=== PATIENT | female | born 1985 | race Two or more races ===

== ENCOUNTER 2017-01-20 16:04 | Emergency (ER) | payer OTHER ==
[~2017-01-20] VITALS: Ht 157.5 cm; Wt 81.8 kg
[2017-01-20 16:05] VITALS: BP 138/86
[2017-01-20] MEDS ORDERED: ACET325T10 PO (16:20)
[2017-01-20] MEDS ORDERED: METH1TAB40 PO (16:20)
[2017-01-20] MEDS ORDERED: INDO50CA PO (16:20)
[2017-01-20] MEDS ORDERED: IBUP-1022 PO (16:20)
[2017-01-20] MEDS ORDERED: PRED20TA PO (17:13)
[2017-01-20] MEDS ORDERED: VALI5TAB PO (17:14)
[2017-01-20] MEDS ORDERED: diazePAM 5 MG TAB PO ONE (17:15)
[2017-01-20] MEDS ORDERED: predniSONE 20 MG TAB PO ONE (17:15)
== END 2017-01-20 17:44 | disposition home or self-care (01) ==
LOC: M ED 16:04
DX: M54.42 Lumbago with sciatica, left side (principal)

== ENCOUNTER → 2017-03-30 | Outpatient (CLI) | payer OTHER ==
[~2017-03-30] MED LIST: ACET325T10 PO; IBUP-1022 PO; INDO50CA PO; METH1TAB40 PO; PRED20TA PO; VALI5TAB PO
--- NOTE | 2017-04-18 01:33 | ECWPNPC ---
PATIENT NAME: JANKI DELEON : 1985 GENDER: FEMALE VISIT DATE: 03/30/2017 DISCHARGE DATE: 03/30/17 1431 VISIT LOCKED DATE TIME: PHYSICIAN: CHRISTIAN WARD RESOURCE: CHRISTIAN WARD REASON FOR APPOINTMENT 1. BACK PAIN HISTORY OF PRESENT ILLNESS NEW PATIENT CONSULT: 32 Y/O FEMALE REFERRED FROM [facility] FOR PERSISTENT LOW BACK PAIN WITH LEFT LEG RADICULAR SYMPTOMS. SHE HAD COSMETIC SURGERY OVER BUTTOCKS AND THIGH IN AUGUST 2016.SHE TWISTED GOING DOWN STAIRS IN OCTOBER 2016 AND BEGAN TO EXPERIENCE SEVERE COCCYX AND LEFT BUTTOCK PAIN.SHORTLY AFTER SHE BEGAN TO HAVE INTERMITTENT LEFT POSTERIOR LEG SHOOTING PAIN INCLUDING FOOT.RATING PAIN VAS 7/10.SHE IS CURRENTLY ATTENDING PT BUT IS HAVING EXCRUCIATING PAIN.VERY UNCOMFORTABLE DURING VISIT.DENIES BOWEL OR BLADDER INCONTINENCE.NO RECENT FEVER,ILLNESS OR WEIGHT LOSS. WHEN DID YOUR PAIN FIRST START? . BRIEFLY DESCRIBE HOW YOUR PAIN STARTED? . HOW DOES YOUR PAIN CHANGE WITH TIME? . DOES YOUR PAIN AWAKEN YOU FROM SLEEP? . HOW MANY HOURS OF SLEEP DO YOU NORMALLY GET? . ANY DIAGNOSTIC TESTING? . FACILITY WHERE TESTS WERE DONE? ____. PAIN TREATMENT TREATMENT YES CANCER HAVE YOU EVER HAD ANY TYPE OF CANCER?NO NO. PAIN SCREENING: PATIENT HAS A COMPLAINT OF ACUTE OR CHRONIC PAIN :YES FALL RISK SCREENING: SCREENING :NO FALLS IN THE PAST YEAR LENZ INVENTORY: QUESTIONNAIRE ASSESSEDYES SCORE VALUE CALCULATED YES SCORE:12 CURRENT MEDICATIONS TAKING TYLENOL 325 MG TABLET 2 TABLETS NEEDED ORALLY EVERY 6 HRS TAKING IBUPROFEN 800 MG TABLET 1 TABLET WITH FOOD OR MILK ORALLY THREE TIMES A DAY TAKING VALIUM 5 MG TABLET 1 TABLET NEEDED ORALLY ONCE EVERY 2 WEEKS NEEDED TAKING GREEN TEA - TABLET 1 TAB ORALLY TWICE A DAY TAKING CINNAMON 500 MG TABLET 1 TAB ORALLY TWICE A DAY TAKING MULTIVITAMIN GUMMIES CHILDRENS - TABLET CHEWABLE 1 TAB ORALLY TWICE A DAY NOT-TAKING INDOMETHACIN 25 MG CAPSULE 1 CAPSULE WITH FOOD OR MILK ORALLY TWICE A DAY NOT-TAKING METHOCARBAMOL 500 MG TABLET 1.5 TABLETS ORALLY EVERY 4 HRS NOT-TAKING FLEXERIL 10 MG TABLET 1 TABLET NEEDED ORALLY THREE TIMES A DAY NOT-TAKING IBUPROFEN 600 MG TABLET 1 TABLET WITH FOOD OR MILK ORALLY THREE TIMES A DAY MEDICATION LIST REVIEWED AND RECONCILED WITH THE PATIENT PAST MEDICAL HISTORY NECK AND BACK PAIN ALLERGIES N.K.D.A. SURGICAL HISTORY CHRISTIANNE BARBOUR 2012 LIPOSUCTION IN LOW BACK AREA AND INNER THIGHS 08/2016 FAMILY HISTORY FATHER: , DIAGNOSED WITH HEART DISEASE MOTHER: ALIVE 2 SISTER(S) - HEALTHY. 1 SON(S) - HEALTHY. SOCIAL HISTORY GENERAL: TOBACCO USE ARE YOU A:FORMER SMOKER HOW LONG HAS IT BEEN SINCE YOU LAST SMOKED?1-5 YEARS ALCOHOL SCREENING POINTS1 INTERPRETATIONNEGATIVE RECREATIONAL DRUG USE DRUG USE?NO AMISH [id number] NONE LANGUAGE LANGUAGES SPOKEN:DIVEHI LEARNING BARRIERS / SPECIAL NEEDS BARRIERS TO LEARNING?NO HEARING IMPAIRED?NO VISION IMPAIRED?NO COGNITIVELY IMPAIRED?NO READINESS TO LEARN?YES LEARNING PREFERENCES?NO LEARNING CAPABILITIES PRESENT?YES EMOTIONAL BARRIERS?NO SPECIAL DEVICES?NO SENIOR RECEPTIONIST NEEDED?NO PAIN CLINIC PFS, CLERGY, PUBLIC HEALTH REFERRALS PFS REFERRAL NEEDED?NO CLERGY REFERRAL NEEDED?NO PUBLIC HEALTH REFERRAL NEEDED?NO WAS THE PROVIDER NOTIFIED OF ANY PERTINENT INFO?NO HAS THE PATIENT BEEN EDUCATED REGARDING HIS/HER PLAN OF CARE?YES HAS THE PATIENT BEEN EDUCATED REGARDING PAIN, THE RISK FOR PAIN, THE IMPORTANCE OF EFFECTIVE PAIN MANAGEMENT, AND THE PAIN ASSESSMENT PROCESS?YES PATIENT: ____. ADVANCE DIRECTIVES HEALTH CARE PROXY?NO WOULD YOU LIKE MORE INFORMATION?NO DO YOU HAVE A DNR?NO WOULD YOU LIKE MORE INFORMATION?NO LIVING WILL?NO WOULD YOU LIKE MORE INFORMATION?NO POWER OF DIFFERENTIAL SPECIALIST?NO WOULD YOU LIKE MORE INFORMATION?NO REVIEW OF SYSTEMS REVIEWED BY: PROVIDER: CHRISTIAN BOX . CONSTITUTIONAL: ANY CHANGE IN YOUR MEDICAL CONDITION? NO . CHILLS NO . FEVER NO . INFECTION: DO YOU HAVE NEW INFECTIONS? NO . DO YOU HAVE HISTORY OF MRSA? NO . MUSCULOSKELETAL: ANY NEW PATTERNS OF PAIN OR NUMBNESS? NO . SYTEMIC LUPUS NO . GASTROENTEROLOGY: ANY NEW CHANGE IN BOWEL CONTROL? NO . BARRETTS ESOPHAGUS NO . CIRRHOSIS NO . HEPATITIS NO . LIVER FAILURE NO . ACID REFLUX NO . UNEXPLAINED WEIGHT LOSS NO . GENITOURINARY: ANY NEW CHANGE IN BLADDER CONTROL? NO . IS THERE A CHANCE YOU COULD BE ? NO . HEMATOLOGY/LYMPH: DO YOU TAKE ANY BLOOD THINNERS? (FOR EXAMPLE- COUMADIN, PLAVIX, AGGRENOX, PLATEL, PRADAXA, OR XARELTO) NO . WHEN WAS YOUR LAST DOSE? DATE: TIME: . LOW PLATELET COUNT NO . SICKLE CELL DISEASE NO . VON WILLIEBRANDS NO . FACTOR V LEIDEN NO . THALLASEMIA NO . ANEMIA NO . EASY BRUISING NO . NEUROLOGY: HAVE YOU FALLEN IN THE PAST 6 MONTHS? NO . ANY NEW EXTREMITY NUMBNESS OR WEAKNESS? NO . HEAD INJURY NO . DEMENTIA NO . CEREBRAL PALSY NO . MULTIPLE SCLEROSIS NO . DIZZINESS NO . HEADACHE NO . STROKES NO . VERTIGO NO . CARDIOLOGY: DO YOU HAVE A PACEMAKER OR DEFIBRILLATOR? NO . ANGINA NO . HEART ATTACK NO . HEART SURGERY NO . CONGESTIVE HEART FAILURE/FLUID OVERLOAD NO . CHEST PAIN NO . HIGH BLOOD PRESSURE NO . IRREGULAR HEART BEAT NO . RESPIRATORY: HAVE YOU BEEN SICK IN THE PAST WEEK? NO . FEVER NO . FLU LIKE SYMPTOMS? NO . CPAP NO . BYPAP NO . ASTHMA NO . EMPHYSEMA NO . CHRONIC LUNG DISEASES NO . SHORTNESS OF BREATH ON EXERTION NO . DO YOU USE ANY TYPE OF TOBACCO (SMOKE, SMOKELESS, CHEW)? NO . COUGH NO . SNORING NO . INTEGUMENTARY: DO YOU HAVE ANY RASHES OR OPEN SORES? NO . ALLERGIC/IMMUNO: ARE YOU ALLERGIC TO SHELLFISH OR IV DYE? NO . ANY NEW ALLERGIES? NO . PSYCHIATRIC: DO YOU HAVE THOUGHTS OF HURTING YOURSELF OR SOMEONE ELSE? NO . ARE YOU ABUSED, NEGLECTED, OR IN AN UNSAFE ENVIRONMENT? NO . ENDOCRINOLOGY: ARE YOU DIABETIC? NO . THYROID DISORDER NO . OTHER: DO YOU NEED ANY PRESCRIPTIONS? NO . IF YES, PLEASE LIST: ____ . ANY NEW PROBLEMS WITH YOUR MEDICATIONS? NO . WHEN DID YOU LAST EAT? ____ . WHEN DID YOU LAST DRINK? ____ . WHAT DID YOU LAST DRINK? ____ . NAME OF PERSON DRIVING YOU HOME? ____ . DO YOU HAVE ANY OTHER QUESTIONS OR CONCERNS YES, I WOULD LIKE TO CONTINUE PT WITHOUT PAIN . VITAL SIGNS WT 175.2 LBS, HT 62 IN, BMI 32.04 INDEX, BP 135/78 MM HG, HR 110 /MIN, RR 18 /MIN, TEMP 98.8 F, OXYGEN SAT % 99, SAFE IN ENV? (Y/N) YES, NA INITIALS AW 1324, REVIEWED BY: CS. EXAMINATION GENERAL EXAMINATION: GENERAL APPEARANCE:UNCOMFORTABLE,DEPRESSED,WEEPY.,ANXIOUS. PSYCHCONSTRICTED. NECK:TRACHEA MIDLINE. NO CERVICAL OR SUPRACLAVICULAR LYMPHADENOPATHY NOTED. LUNGS:LUNG GLYNN ARE CLEAR TO AUSCULTATION BILATERALLY. GOOD MOVEMENT OF AIR. HEART:S1, S2 IN A REGULAR RATE AND RHYTHM. NO SIGNIFICANT MURMURS, RUBS OR GALLOPS NOTED. LUMBAR SACRAL SPINEMUSCLE STRENGTH TESTING 5/5 BLE.SPECIFIC POINT TENDERNESS OVER LEFT SIJ. NEUROLOGIC EXAM:DTRS 1-2+ IN ALL 4 EXTREMITIES.NORMAL SENSATION LIGHT TOUCH LOWER EXTREMITIES. ASSESSMENTS PAIN OF LEFT SACROILIAC JOINT - M53.3 (PRIMARY) PROTRUDED LUMBAR DISC - M51.26 TREATMENT PAIN OF LEFT SACROILIAC JOINT START TRAMADOL HCL TABLET, 50 MG, 1 TABLET NEEDED, ORALLY, Q8H MDD3, 30 DAY(S), 30, REFILLS 0 NOTES: LEFT SIJ. PREVENTIVE MEDICINE PAIN CLINIC TEACHING: MEDICATIONS PATIENT HAD ALREADY TAKEN TRAMADOL PRIOR SO DECLINED ANY FURTHER TEACHING. PROCEDURE TEACHING SACROILIAC JOINT INJECTION TEACHING DONE. ADDITIONAL HANDOUTS GIVEN. PATIENT'S QUESTIONS ANSWERED AND PATIENT VERBALIZES UNDERSTANDING.. PROCEDURE CODES FA211 ESTABILISHED PATIENT [facility] CHARGE DISPOSITION & COMMUNICATION FOLLOW UP 2WK POST (REASON: REQUEST SHAHEEN BUNN) ELECTRONICALLY SIGNED BY ISAURO JUNE ON 04/17/2017 AT 08:30 PM EDT DISCLAIMER : THIS IS A VISIT SUMMARY EXTRACTED FROM THE [employer] CHART. IT IS NOT A COPY OF THE [employer] PROGRESS NOTE. PARAS
== END ==
LOC: M PAIN 13:15
PROVIDERS: ATTEND Nurse Practitioner Family
DX: M53.3 Sacrococcygeal disorders, not elsewhere classified (principal); M51.26 Other intervertebral disc displacement, lumbar region; G89.29 Other chronic pain; Z87.891 Personal history of nicotine dependence; Z79.899 Other long term (current) drug therapy

== ENCOUNTER → 2017-07-18 | Outpatient (CLI) | payer OTHER ==
[2017-07-18 17:41] LABS: HEMOGLOBIN 14.8 g/dl (12.0-16.0); MEAN CORPUSCULAR HEMOGLOBIN 30.3 pg (27.0-33.0); MEAN CORPUSCULAR HGB CONC 34.4 g/dl (32.0-36.5); MEAN CORPUSCULAR VOLUME 87.9 fl (80.0-96.0); PLATELET COUNT, AUTOMATED 258 10^3/uL (150-450); RED BLOOD COUNT 4.89 10^6/uL (4.00-5.40); RED CELL DISTRIBUTION WIDTH 12.6 % (11.5-14.5); WHITE BLOOD COUNT 8.4 10^3/uL (4.0-10.0)
[2017-07-18 18:20] LABS: ALBUMIN 4.3 GM/DL (3.2-5.2); ALKALINE PHOSPHATASE 59 U/L (45-117); ALT/SGPT 15 U/L (12-78); ANION GAP 10 MEQ/L (8-16); AST/SGOT 12 U/L (7-37); BILIRUBIN,TOTAL 0.6 MG/DL (0.2-1.0); BLOOD UREA NITROGEN 11 MG/DL (7-18); CALCIUM LEVEL 9.5 MG/DL (8.5-10.1); CARBON DIOXIDE LEVEL 29 MEQ/L (21-32); CHLORIDE LEVEL 101 MEQ/L (98-107); CREATININE FOR GFR 0.81 MG/DL (0.55-1.02); FREE T4 0.94 NG/DL (0.76-1.46); GLOMERULAR FILTRATION RATE > 60.0 (>60); GLUCOSE, FASTING 59 MG/DL (70-100); POTASSIUM SERUM 4.1 MEQ/L (3.5-5.1); SODIUM LEVEL 140 MEQ/L (136-145); TOTAL PROTEIN 7.6 GM/DL (6.4-8.2)
[2017-07-18 19:06] LABS: FOLATE > 24.0 NG/ML; TOTAL 25(OH) VITAMIN D 17.2 NG/ML (30.0-100.0); VITAMIN B12 LEVEL 466 PG/ML
[2017-07-18 20:14] LABS: ESTIMATED AVERAGE GLUCOSE 97 MG/DL (60-110)
== END ==
LOC: M LRY 13:38
DX: E66.09 Other obesity due to excess calories (principal); E55.9 Vitamin D deficiency, unspecified; Z13.0 Encounter for screening for diseases of the blood and blood-forming organs and certain disorders involving the immune mechanism; Z68.32 Body mass index [BMI] 32.0-32.9, adult; R53.83 Other fatigue
CPT/HCPCS: 82746

== ENCOUNTER 2018-08-08 13:29 | Inpatient (IN) | payer OTHER ==
[~2018-08-08] VITALS: Ht 162.6 cm; Wt 66.6 kg
[2018-08-08 15:02] LABS: HEMATOCRIT 47.1 % (36.0-47.0); HEMOGLOBIN 16.2 g/dl (12.0-15.5); MEAN CORPUSCULAR HEMOGLOBIN 30.4 pg (27.0-33.0); MEAN CORPUSCULAR HGB CONC 34.4 g/dl (32.0-36.5); MEAN CORPUSCULAR VOLUME 88.4 fl (80.0-96.0); PLATELET COUNT, AUTOMATED 292 10^3/uL (150-450); RED BLOOD COUNT 5.33 10^6/uL (4.00-5.40); WHITE BLOOD COUNT 10.8 10^3/uL (4.0-10.0)
[2018-08-08 15:29] LABS: AMPHETAMINES LEVEL URINE NEGATIVE (NEGATIVE); BARBITURATES URINE NEGATIVE (NEGATIVE); BENZODIAZEPINES URINE NEGATIVE (NEGATIVE); CANNABINOIDS URINE NEGATIVE (NEGATIVE); COCAINE METABOLITE URINE NEGATIVE (NEGATIVE); METHADONE URINE NEGATIVE (NEGATIVE); OPIATES URINE NEGATIVE (NEGATIVE); PHENCYCLIDINE URINE NEGATIVE (NEGATIVE)
[2018-08-08 15:30] LABS: HCG, SERUM QUALITATIVE NEGATIVE (NEGATIVE)
[2018-08-08 15:48] LABS: ACETAMINOPHEN LEVEL < 2.0 UG/ML (10.0-30.0); ALT/SGPT 19 U/L (12-78); BILIRUBIN,DIRECT 0.2 MG/DL (0.0-0.2); BILIRUBIN,TOTAL 0.5 MG/DL (0.2-1.0); BLOOD UREA NITROGEN 8 MG/DL (7-18); CALCIUM LEVEL 8.8 MG/DL (8.5-10.1); CARBON DIOXIDE LEVEL 24 MEQ/L (21-32); CHLORIDE LEVEL 105 MEQ/L (98-107); CREATININE FOR GFR 0.89 MG/DL (0.55-1.30); ETHYL ALCOHOL (ETHANOL) 0.175 % (0.000-0.010); GLOMERULAR FILTRATION RATE > 60.0 (>60); GLUCOSE, FASTING 99 MG/DL (70-100); POTASSIUM SERUM 4.1 MEQ/L (3.5-5.1); SALICYLATE LEVEL < 1.7 MG/DL (5.0-30.0); SODIUM LEVEL 142 MEQ/L (136-145)
[2018-08-08] MEDS ORDERED: MOM 30ML SUSPENSION UDC PO PRN (19:15)
[2018-08-08] MEDS ORDERED: traZODone 50 MG TAB PO PRN (19:15)
[2018-08-08] MEDS ORDERED: MAALOX 30 ML SUSP *UDC PO PRN (19:15)
[2018-08-08 21:43] VITALS: BP 138/90
[2018-08-09 06:42] VITALS: BP 124/78
--- NOTE | 2018-08-09 09:35 | HPEPDOC ---
[facility] Medical History & Physical Date of Admission Aug 08, 2018 History and Physical PCP: Jairo leone ATTENDING: Dr. Kelley Guzman HPI: 33 yo F admitted to [facility] for unspecified depressive disorder, being medically examined today. The patient declines to participate with history or physical exam at this time. The patient had apparently been found at her home running her vehicle in a closed garage. History is taken from the chart. PMHx: Anxiety Depression Bipolar disorder History of SI PSHX: Labiaplasty SOCHX: Resides in: [facility] Marital Status: FAMHX: Patient declines to provide history at this time. ROS: Patient declines to provide any additional history at this time. PE: Patient declines to participate with physical exam at this time. Vital Signs Label Value Date Time Patient Temperature 99.1 degrees F 08/09/18 0642 Temperature Source Temporal 08/09/18641 Pulse 105 08/09/18 06 Respiratory Rate 14 bpm 08/09/18641 Blood Pressure Assessment 124/78 (93) 08/09/1842 Bedside Pulse Oximetry 100 % 08/08/182121 Item Value Date Time Oxygen Delivery Method Room Air 08/08/182121 EKG: Pending A&P: 33 yo F admitted to [facility] for unspecified depressive disorder 1. Psych. Plan per Psychiatry. Obtain baseline EKG to assure the safety of psychiatric medications as they can prolong the QT interval. 2. Substance use. Management as per psychiatry. 3. Follow up with PCP on discharge. 4. Mild leukocytosis. The patient is reporting to staff members that she feels fine. No symptoms reported. Temperature this morning is 99.1. Possible stress response. Recheck CBC in a.m. Request UA with reflex culture. 5. Staff member Clemente assisted in attempting exam. Vital Signs Vital Signs Date Time Temp Pulse Resp B/P (MAP) Pulse Ox O2 Delivery O2 Flow Rate FiO2 08/09/18 06:42 99.1 105 14 124/78 (93) 08/08/18 21:22 100 Room Air Laboratory Data Labs 24H Laboratory Tests 2 08/08/18 14:45: Nucleated Red Blood Cells % (auto) 0.0, Anion Gap 13, Glomerular Filtration Rate > 60.0, Calcium Level 8.8, Aspartate Amino Transf (AST/SGOT) 18, Alanine Aminotransferase (ALT/SGPT) 19, Alkaline Phosphatase 60, Total Bilirubin 0.5, Direct Bilirubin 0.2, Total Protein 8.0, Albumin 5.0, Albumin/Globulin Ratio 1.67, Thyroid Stimulating Hormone (TSH) 1.160, Human Chorionic Gonadotropin, Qual NEGATIVE, Salicylates Level < 1.7L, Urine Amphetamines Screen NEGATIVE, Urine Benzodiazepines Screen NEGATIVE, Urine Opiates Screen NEGATIVE, Urine Methadone Screen NEGATIVE, Acetaminophen Level < 2.0L, Urine Barbiturates Screen NEGATIVE, Urine Phencyclidine Screen NEGATIVE, Urine Cocaine Metabolite Screen NEGATIVE, Urine Cannabinoids Screen NEGATIVE, Ethyl Alcohol Level 0.175H CBC/BMP Laboratory Tests 08/08/18 14:45 Red Blood Count 5.33, Mean Corpuscular Volume 88.4, Mean Corpuscular Hemoglobin 30.4, Mean Corpuscular Hemoglobin Concent 34.4, Red Cell Distribution Width 12.9 Home Medications No Active Prescriptions or Reported Meds Allergies Coded Allergies: No Known Allergies (Unverified , 01/20/17) Prachi Young Aug 09, 2018 09:35
--- NOTE | 2018-08-09 10:46 | MHHPEPDOC ---
General Date Of Admission: Aug 08, 2018 Legal Status: 9.39 Chief Complaint "The car was running b/c I was going somewhere and couldn't find my purse." History of Present Illness HISTORY OF THE PRESENT ILLNESS: Patient is a 33 -year-old , dependant, female, who was admitted after pt was brought in by police at [facility] pt's called them stating the pt called him and told him she was going to kill herself. When MP's arrived to pt's home they found her in the garage with the car running, CO everywhere, broken glass on the floor everywhere, ceiling fan and detectors pulled out of ju[place]rez and destroyed on the floor. In the ED pt denied SI stating the car was running b/c she was going somewhere and couldn't find her purse. She denied calling her . 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 She was evasive and laughing during evaluation in the ED. Pt seen in room and refusing to talk to anyone. Per staff pt standing in her closet and won't come out. When I saw her she was being seen by nurse and no longer in her closet but did attempt to return to her closest after it was clear she was not going to talk to anyone. She appears more behavioral and annoyed she's here rather than psychotic. Pt advised she will be locked out of her room if she doesn't refrain from standing in the closet. Pt sat on her bed. Pt is very uncooperative. History gathered from ED records as pt refusing to talk to anyone. Past Psychiatric History Previous Psychiatric Diagnosis: depression Previous Psychiatric Admissions: previous admission in [place] per pt's Suicide Attempts: unknown Psychiatric Follow-up: none known Psychiatric medications: none Past Medical History Medical Problems denies Head Injury: No Seizures: No Hospitalizations: No Surgeries: Yes (labiaplasty, cosmetic buttock surgery) Family Medical/Psychiatric HX Medical Problems noncontributory Psychiatric Disorders: No Addiction: No Suicide Attemps/Completions: No Addiction History denies Social History Unable to assess Childhood: unknown Abuse/Trauma:unknown Current Living Situation: lives with on FD Education: unknown Employment:unknown Social Support: Legal: unknown Marital: , dependant Mental Status Examination General Appearance: well groomed, appears stated age, hospital scubs/clothing Build: average Demeanor: withdrawn, guarded Eye Contact: poor Activity: average Behavior: uncooperative, withdrawn, other (refusing to talk to anyone) Speech: impoverished Mood: irritable Mood mute Affect: constricted, inappropriate Thought Process: other (unable to assess) Thought Content (Delusions): other (unable to assess) Thought Content (Other): other (unable to assess) Thought Content (Aggressive): other (unable to assess) Perception (Hallucinations): other (unable to assess) Perception (Other): other (unable to assess) Cognition (Impairment of): unable to assess Cognition(Intelligence Est.): other (unable to assess) Oriented: Awake, Alert Insight: poor Judgment: Poor Psychosis: Other (unable to assess) Diagnoses Mood d/o unspecified Assessment Pt seen in room and refusing to talk to anyone. Per staff pt standing in her closet and won't come out. When I saw her she was being seen by nurse and no longer in her closet but did attempt to return to her closest after it was clear she was not going to talk to anyone. She appears more behavioral and annoyed she's here rather than psychotic. Pt advised she will be locked out of her room if she doesn't refrain from standing in the closet. Pt sat on her bed. Pt is very uncooperative. Will start prozac 10mg daily for mood and anxiety as history indicates b/c most likely suffering from depression. Initial Treatment Plan 1. Patient was admitted on a 9.39 status. 2. Complete history was obtained. 3. With patients permission, family will be contacted and database will be expanded. 4. Patients medication regimen will be reviewed and changed accordingly. 5. Patient will be provided with protected environment. 6. Patient will be treated with individual, group, and milieu therapies. 7. Patient will receive supportive psych-education. 8. Discharge planning will commence immediately. 9. Outpatient follow-up treatment will be strongly recommended. 10. The initial treatment plan will focus initially on: * Depression. * Risk for suicide. * Substance abuse. 11. prozac 10mg daily ESTIMATED LENGTH OF STAY: 5-7 DAYS. TIME SPENT COUNSELING AND COORDINATING INITIAL CARE: 60 minutes. Vital Signs Vital Signs Date Time Temp Pulse Resp B/P (MAP) Pulse Ox O2 Delivery O2 Flow Rate FiO2 2/14/19 06:42 99.1 105 14 124/78 (93) 08/08/18 21:22 100 Room Air Laboratory Data 24H Labs Laboratory Tests 2 08/08/18 14:45: Nucleated Red Blood Cells % (auto) 0.0, Anion Gap 13, Glomerular Filtration Rate > 60.0, Calcium Level 8.8, Aspartate Amino Transf (AST/SGOT) 18, Alanine Aminotransferase (ALT/SGPT) 19, Alkaline Phosphatase 60, Total Bilirubin 0.5, Direct Bilirubin 0.2, Total Protein 8.0, Albumin 5.0, Albumin/Globulin Ratio 1.67, Thyroid Stimulating Hormone (TSH) 1.160, Human Chorionic Gonadotropin, Qual NEGATIVE, Salicylates Level < 1.7L, Urine Amphetamines Screen NEGATIVE, Urine Benzodiazepines Screen NEGATIVE, Urine Opiates Screen NEGATIVE, Urine Methadone Screen NEGATIVE, Acetaminophen Level < 2.0L, Urine Barbiturates Screen NEGATIVE, Urine Phencyclidine Screen NEGATIVE, Urine Cocaine Metabolite Screen NEGATIVE, Urine Cannabinoids Screen NEGATIVE, Ethyl Alcohol Level 0.175H CBC/BMP Laboratory Tests 08/08/18 14:45 Red Blood Count 5.33, Mean Corpuscular Volume 88.4, Mean Corpuscular Hemoglobin 30.4, Mean Corpuscular Hemoglobin Concent 34.4, Red Cell Distribution Width 12.9 Medications No Active Prescriptions or Reported Meds Allergies Coded Allergies: No Known Allergies (Unverified , 01/20/17) KONSTANTIN KHAN DO Aug 09, 2018 10:46
--- NOTE | 2018-08-09 16:29 | ECGEPIP ---
Stationary ECG Study [facility] Test Date: 2018-08-09 Pat Name: JANKI DELEON Department: Room: [place] [address] Gender: F [employer] Trimmer: NAI : 1985 Requested By: Prachi Young Order Number: [id number] Reading MD: Pau Camacho Measurements Intervals [place] Rate: 86 P: 24 AR: 118 QRS: 68 QRSD: 85 T: 41 QT: 364 QTc: 435 Interpretive Statements SINUS RHYTHM WITH MARKED SINUS ARRHYTHMIA VS PAC WITH SHORT AR INTERVAL NO PRIOR Electronically Signed On 08-09-2018 16:28:31 EST by Pau Camacho
[2018-08-09 18:00] VITALS: BP 139/76
--- NOTE | 2018-08-10 10:01 | MHIPNPDOC ---
[facility] Progress Note Progress Note DATE OF SERVICE: 08/10/18 HISTORY: Patient is a 33 -year-old , dependant, female, who was admitted after pt was brought in by police at per pt's c alled them stating the pt called him and told him she was going to kill herself. When MP's arrived to pt's home they found her in the garage with the car running, CO everywhere, broken glass on the floor everywhere, ceiling fan and detectors pulled out of [place] and destroyed on the floor. In the ED pt denied SI stating the car was running b/c she was going somewhere and couldn't find her purse. She denied calling her . She admitted she didn't have a [place] driver's license. She was evasive and laughing during evaluation in the ED. Pt seen in room and refusing to talk to anyone. Per staff pt standing in her closet and won't come out. When I saw her she was being seen by nurse and no longer in her closet but did attempt to return to her closest after it was clear she was not going to talk to anyone. She appears more behavioral and annoyed she's here rather than psychotic. Pt advised she will be locked out of her room if she doesn't refrain from standing in the closet. Pt sat on her bed. Pt is very uncooperative. History gathered from ED records as pt refusing to talk to anyone. VITAL SIGNS: See below. NEW TEST RESULTS: See below. CURRENT MEDICATIONS: See below. MENTAL STATUS EXAMINATION: General Appearance: well groomed, appears stated age, hospital scubs/clothing Build: average Demeanor: withdrawn, guarded Eye Contact: poor Activity: average Behavior: uncooperative, withdrawn, other (refusing to talk to anyone) Speech: impoverished Mood: irritable Mood mute Affect: constricted, inappropriate Thought Process: other (unable to assess) Thought Content (Delusions): other (unable to assess) Thought Content (Other): other (unable to assess) Thought Content (Aggressive): other (unable to assess) Perception (Hallucinations): other (unable to assess) Perception (Other): other (unable to assess) Cognition (Impairment of): unable to assess Cognition(Intelligence Est.): other (unable to assess) Oriented: Awake, Alert Insight: poor Judgment: Poor Psychosis: Other (unable to assess) DIAGNOSES: Mood d/o unspecified ASSESSMENT:Pt seen in room and refusing to talk and put head under covers in bed. Per staff attempted to see pt and pt refusing to acknowledge admission status (9.39) believing she will be d/c after 24hrs. Refusing to participate in treatment. Agitated with nursing staff and d/c liaison planner asking them to "leave and take my tray" and then when told she must do that attempted to throw at staff but it was taken away from her w/o incident. Pt after arguing with staff proceeded to go to bathroom and say "I'm taking a shit... leave." Pt appears to be very behavioral and possibly paranoid but hard to tell due to complete refusal to talk and cooperate with care. Pt advised this morning when seen that she will be locked out of her room during the day so that she can start p articipating in her treatment rather than isolating in bed refusing to cooperate in any way. Pt has returned from [facility] but pt refuses to sign consent for staff to speak with them so he can aid in pt care. Pt per staff seems to think she can organize her own d/c with a "pad of paper." Pt is very uncooperative. Pt is refusing all medications. MANAGEMENT PLAN: pt to be moved to single room and lock out of room for 8am to 9pm to promote treatment participation Medications: prozac 10mg daily TIME SPENT: 30 minutes. Vital Signs Vital Signs Date Time Temp Pulse Resp B/P (MAP) Pulse Ox O2 Delivery O2 Flow Rate FiO2 08/09/18 18:00 98.2 104 16 139/76 (97) 08/08/18 21:22 100 Room Air Current Medications Current Medications Acetaminophen (Tylenol Tab) 650 mg Q6HP PRN PO HEADACHE or DISCOMFORT; Start 08/08/18 at 19:15 Al Hydrox/Mg Hydrox/Simethicone (Mylanta) 30 ml Q4HP PRN PO HEARTBURN/INDIGESTION; Start 08/08/18 at 19:15 Home Med (Med Rec Complete!) ASDIRECTED XX ; Start 08/08/18 at 19:45; Stop 08/08/18 at 19:48; Status DC Magnesium Hydroxide (Milk Of Magnesia) 30 ml DAILYPRN PRN PO CONSTIPATION; Start 08/08/18 at 19:15 Trazodone HCl (Desyrel) 50 mg QHSP PRN PO INSOMNIA; Start 08/08/18 at 19:15 Allergies Coded Allergies: No Known Allergies (Unverified , 01/20/17) KONSTANTIN KHAN DO Aug 10, 2018 10:01 am
[2018-08-10] MEDS ORDERED: FLUoxetine 10 MG CAP PO ONE (10:15)
[2018-08-11 06:36] VITALS: BP 116/68
[2018-08-11] MEDS: FLUoxetine 10 MG CAP PO SCH (09:00)
[2018-08-11] MEDS ORDERED: LORazepam 2 MG TAB PO PRN (20:15)
[2018-08-11] MEDS: THIAMINE 100 MG TAB PO SCH (21:00)
[2018-08-12] MEDS: FLUoxetine 10 MG CAP PO SCH (09:00)
[2018-08-12] MEDS: FOLIC ACID 1 MG TAB PO SCH (09:00)
[2018-08-12] MEDS: MULTIVITAMINS/MINERALS THERAP 1 TAB PO SCH (09:00)
[2018-08-12] MEDS: THIAMINE 100 MG TAB PO SCH ×2 (09:00→21:00)
[2018-08-12 09:46] VITALS: BP 116/68
[2018-08-12 17:27] VITALS: BP 129/85
[2018-08-12 17:31] VITALS: BP 129/85
[2018-08-13 08:44] VITALS: BP 129/85
[2018-08-13] MEDS: FLUoxetine 10 MG CAP PO SCH (09:00)
[2018-08-13] MEDS: THIAMINE 100 MG TAB PO SCH ×2 (09:00→21:00)
[2018-08-13] MEDS: FOLIC ACID 1 MG TAB PO SCH (09:00)
[2018-08-13] MEDS: MULTIVITAMINS/MINERALS THERAP 1 TAB PO SCH (09:00)
--- NOTE | 2018-08-13 09:56 | MHIPNPDOC ---
[facility] Progress Note Progress Note DATE OF SERVICE: 08/13/18 HISTORY: Patient is a 33 -year-old , dependant, female, who was admitted after pt was brought in by police at per pt's c alled them stating the pt called him and told him she was going to kill herself. When MP's arrived to pt's home they found her in the garage with the car running, CO everywhere, broken glass on the floor everywhere, ceiling fan and detectors pulled out of [place] and destroyed on the floor. In the ED pt denied SI stating the car was running b/c she was going somewhere and couldn't find her purse. She denied calling her . 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 She was evasive and laughing during evaluation in the ED. Pt seen in room and refusing to talk to anyone. Per staff pt standing in her closet and won't come out. When I saw her she was being seen by nurse and no longer in her closet but did attempt to return to her closest after it was clear she was not going to talk to anyone. She appears more behavioral and annoyed she's here rather than psychotic. Pt advised she will be locked out of her room if she doesn't refrain from standing in the closet. Pt sat on her bed. Pt is very uncooperative. History gathered from ED records as pt refusing to talk to anyone. VITAL SIGNS: See below. NEW TEST RESULTS: See below. CURRENT MEDICATIONS: See below. MENTAL STATUS EXAMINATION: General Appearance: well groomed, appears stated age, hospital scubs/clothing, head under covers, irritated when I moved cover a little to see face and rudely said "I don't want to talk to you... I don't know who you are." even though I've repeatedly introduced myself to her. Build: average Demeanor: withdrawn, guarded Eye Contact: poor Activity: average Behavior: uncooperative, withdrawn, other (refusing to talk to anyone) Speech: impoverished Mood: irritable Mood "go away." Affect: constricted, inappropriate Thought Process: other (unable to assess) Thought Content (Delusions): other (unable to assess) Thought Content (Other): other (unable to assess) Thought Content (Aggressive): other (unable to assess) Perception (Hallucinations): other (unable to assess) Perception (Other): other (unable to assess) Cognition (Impairment of): unable to assess Cognition(Intelligence Est.): other (unable to assess) Oriented: Awake, Alert Insight: poor Judgment: Poor Psychosis: Other (unable to assess) DIAGNOSES: Psychosis unspecified ASSESSMENT:Pt seen in room and refusing to talk and put head under covers in bed. Per staff attempted to see pt and pt refusing to acknowledge admission status (9.39) believing she will be d/c after 24hrs. Refusing to participate in treatment. Pt appears to be very behavioral and paranoid refusing to talk and cooperate with care. Pt advised this morning when seen that she will be locked out of her room during the day so that she can start participating in her treatment rather than isolating in bed refusing to cooperate in any way. Pt has returned from [facility] and came to visit pt who was refusing to see him. Pt's told staff pt has been bizarre at home punch holes in was, text about [employer] being after her, house a mess, sleeping in closet, history of opiate and alcohol abuse now sober. Staff unable to speak to about pt as she will not sign consent. In lite of info from will start abilify 5mg bid for psychosis. Will encourage pt to take meds that she's currently refusing. Pt uncooperative with staff, refused breakfast, not talking. MANAGEMENT PLAN: pt to be moved to single room and lock out of room for 8am to 9pm to promote treatment participation Medications: abilify 5mg bid TIME SPENT: 30 minutes. Vital Signs Vital Signs Date Time Temp Pulse Resp B/P (MAP) Pulse Ox O2 Delivery O2 Flow Rate FiO2 08/12/18 17:31 98.2 104 18 129/85 (100) 100 08/08/18 21:22 Room Air Current Medications Current Medications Acetaminophen (Tylenol Tab) 650 mg Q6HP PRN PO HEADACHE or DISCOMFORT; Start 08/08/18 at 19:15 Al Hydrox/Mg Hydrox/Simethicone (Mylanta) 30 ml Q4HP PRN PO HEARTBURN/INDIGESTION; Start 08/08/18 at 19:15 Fluoxetine HCl (PROzac) 10 mg DAILY PO ; Start 08/11/18 at 09:00 Folic Acid (Folic Acid) 1 mg DAILY PO ; Start 08/12/18 at 09:00 Home Med (Med Rec Complete!) ASDIRECTED XX ; Start 08/08/18 at 19:45; Stop 08/08/18 at 19:48; Status DC Lorazepam (Ativan) 2 mg ASDIRECTED PRN PO SEE PROTOCOL; Start 08/11/18 at 20:15 Magnesium Hydroxide (Milk Of Magnesia) 30 ml DAILYPRN PRN PO CONSTIPATION; Start 08/08/18 at 19:15 Multivitamins (Theragram-M) 1 tab DAILY PO ; Start 08/12/18 at 09:00 Thiamine HCl (Thiamine HCl) 100 mg BID PO ; Start 08/11/18 at 21:00; Stop 08/14/18 at 09:01 Trazodone HCl (Desyrel) 50 mg QHSP PRN PO INSOMNIA; Start 08/08/18 at 19:15 Allergies Coded Allergies: No Known Allergies (Unverified , 01/20/17) KONSTANTIN KHAN DO Aug 13, 2018 9:14 am
[2018-08-13 12:05] VITALS: BP 129/81
--- NOTE | 2018-08-14 06:17 | MHIPN ---
DATE OF EVALUATION: 08/11/2018 The patient basically had her face covered with the bed sheets. I introduced myself and she was noted to move in the bed but she refused to remove the bed sheets from her face or to talk to me. On reviewing the records it appears that she has been refusing to talk to staff since she was admitted. MENTAL STATUS EXAM: I am unable to complete mental status exam because patient is not willing to talk to me. DIAGNOSIS: Rule out mood disorder unspecified. TREATMENT PLAN: At this point we will continue to encourage the patient to be more cooperative with evaluation from the staff so that we can better provide appropriate treatment for her.
[2018-08-14 06:38] VITALS: BP 137/85
[2018-08-14] MEDS: FOLIC ACID 1 MG TAB PO SCH (09:00)
[2018-08-14] MEDS: FLUoxetine 10 MG CAP PO SCH (09:00)
[2018-08-14] MEDS: MULTIVITAMINS/MINERALS THERAP 1 TAB PO SCH (09:00)
[2018-08-14] MEDS: THIAMINE 100 MG TAB PO SCH (09:00)
--- NOTE | 2018-08-14 10:33 | MHIPNPDOC ---
[facility] Progress Note Progress Note DATE OF SERVICE: 08/14/18 HISTORY: Patient is a 33 -year-old , dependant, female, who was admitted after pt was brought in by police at per pt's c alled them stating the pt called him and told him she was going to kill herself. When MP's arrived to pt's home they found her in the garage with the car running, CO everywhere, broken glass on the floor everywhere, ceiling fan and detectors pulled out of [place] and destroyed on the floor. In the ED pt denied SI stating the car was running b/c she was going somewhere and couldn't find her purse. She denied calling her . 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 She was evasive and laughing during evaluation in the ED. Pt seen in room and refusing to talk to anyone. Per staff pt standing in her closet and won't come out. When I saw her she was being seen by nurse and no longer in her closet but did attempt to return to her closest after it was clear she was not going to talk to anyone. She appears more behavioral and annoyed she's here rather than psychotic. Pt advised she will be locked out of her room if she doesn't refrain from standing in the closet. Pt sat on her bed. Pt is very uncooperative. History gathered from ED records as pt refusing to talk to anyone. VITAL SIGNS: See below. NEW TEST RESULTS: See below. CURRENT MEDICATIONS: See below. MENTAL STATUS EXAMINATION: General Appearance: well groomed, appears stated age, hospital scubs/clothing, head under covers, irritated when I moved cover a little to see face and rudely said "I don't want to talk to you... I don't know who you are." even though I've repeatedly introduced myself to her. Build: average Demeanor: withdrawn, guarded Eye Contact: poor Activity: average Behavior: uncooperative, withdrawn, other (refusing to talk to anyone) Speech: impoverished Mood: irritable Mood "go away." Affect: constricted, inappropriate Thought Process: other (unable to assess) Thought Content (Delusions): other (unable to assess) Thought Content (Other): other (unable to assess) Thought Content (Aggressive): other (unable to assess) Perception (Hallucinations): other (unable to assess) Perception (Other): other (unable to assess) Cognition (Impairment of): unable to assess Cognition(Intelligence Est.): other (unable to assess) Oriented: Awake, Alert Insight: poor Judgment: Poor Psychosis: Other (unable to assess) DIAGNOSES: Psychosis unspecified Per Documentation: Hx of Schizophrenia Hx alcohol/opiate use d/o ASSESSMENT:Pt seen in room and refusing to talk and head under covers in bed. Removed sheet a little to see face and stated "I'm fine... I'm talking to you." Would not talk further and resumed keeping her head under the sheet. Per staff, able to move her to single room and did fill out menu for today and eating although not choosing vegan options even though her reported her being vegan. Pt appears to be very behavioral and paranoid refusing to talk and cooperate with care. Pt advised this morning when seen that she will be locked out of her room during the day so that she can start participating in her t reatment rather than isolating in bed refusing to cooperate in any way. Pt's brought in copies of bizarre nonsensical texts from pts, pictures of the home where to had place objects and paper over outlets b/c she thought cameras were in them, punch holes in the [place] with a dumbbell b/c she though people where talking in the [place], and took off and destroyed every light ficture in home (bedroom litterly look destroys, fan detroyed on floor) b/c she thought there were cameras in them. Pt brought in pt history of diagnosis of schizophrenia in [place] when admitted. Pt thru out history denied anything wrong with her and very resistant to psychiatric treatment. Pt's father recently due to liver cirrhosis. Hisband in documentation indicated history of opiate and alcohol abuse now sober. Staff unable to speak to about pt as she will not sign consent. In lite of info from will start abilify 5mg bid for psychosis. Will encourage pt to take meds that she's currently refusing. Pt uncooperative with staff, not talking about reasons for admission. MANAGEMENT PLAN: pt to be moved to single room and lock out of room for 8am to 9pm to promote treatment participation Medications: abilify 5mg bid TIME SPENT: 30 minutes. Vital Signs Vital Signs Date Time Temp Pulse Resp B/P (MAP) Pulse Ox O2 Delivery O2 Flow Rate FiO2 08/14/18 06:38 97.8 97 18 137/85 (102) 08/12/18 17:31 100 08/08/18 21:22 Room Air Current Medications Current Medications Acetaminophen (Tylenol Tab) 650 mg Q6HP PRN PO HEADACHE or DISCOMFORT; Start 08/08/18 at 19:15 Al Hydrox/Mg Hydrox/Simethicone (Mylanta) 30 ml Q4HP PRN PO HEARTBURN/INDIGESTION; Start 08/08/18 at 19:15 Fluoxetine HCl (PROzac) 10 mg DAILY PO ; Start 08/11/18 at 09:00 Folic Acid (Folic Acid) 1 mg DAILY PO ; Start 08/12/18 at 09:00 Home Med (Med Rec Complete!) ASDIRECTED XX ; Start 08/08/18 at 19:45; Stop 08/08/18 at 19:48; Status DC Lorazepam (Ativan) 2 mg ASDIRECTED PRN PO SEE PROTOCOL; Start 08/11/18 at 20:15 Magnesium Hydroxide (Milk Of Magnesia) 30 ml DAILYPRN PRN PO CONSTIPATION; Start 08/08/18 at 19:15 Multivitamins (Theragram-M) 1 tab DAILY PO ; Start 08/12/18 at 09:00 Thiamine HCl (Thiamine HCl) 100 mg BID PO ; Start 08/11/18 at 21:00; Stop 08/14/18 at 09:01; Status DC Trazodone HCl (Desyrel) 50 mg QHSP PRN PO INSOMNIA; Start 08/08/18 at 19:15 Allergies Coded Allergies: No Known Allergies (Unverified , 01/20/17) KONSTANTIN KHAN DO Aug 14, 2018 10:33 am
--- NOTE | 2018-08-14 11:14 | IPNPDOC ---
Date Seen The patient was seen on 08/14/18. Progress Note PCP: Jairo leone ATTENDING: Dr. Kelley Guzman HPI: 33 yo F [facility] for unspecified depressive disorder, being medically examined today. The patient declines to participate with history or physical exam at this time. The patient had apparently been found at her home running her vehicle in a closed garage. History is taken from the chart. RN states the pt has not been eating or drinking well. She declines to come out of her room. She is refusing to take her medications. PMHx: Anxiety Depression Bipolar disorder History of SI PSHX: Labiaplasty PE: The pt declines exam. Vital Signs Label Value Date Time Patient Temperature 97.8 degrees F 08/14/18 0638 Temperature Source Temporal 08/14/18 0638 Pulse 97 08/14/18 0638 Respiratory Rate 18 bpm 08/14/18 0638 Blood Pressure Assessment 137/85 (102) 08/14/18 0638 Bedside Pulse Oximetry 100 % 08/12/18 1731 EKG SINUS RHYTHM WITH MARKED SINUS ARRHYTHMIA VS PAC WITH SHORT OR INTERVAL NO PRIOR Electronically Signed On 08-09-2018 16:28:31 EST by Pau Camacho A&P: 33 yo F [facility] for unspecified depressive disorder, 1. Psych. Plan per Psychiatry. EKG on file. 2. Substance use. Management as per psychiatry. 3. Follow up with PCP on discharge. 4. Poor po intake. CBC/CMP pending. Encourage po intake. VS, I&O, 24H, Fishbone Vital Signs/I&O Vital Signs Date Time Temp Pulse Resp B/P (MAP) Pulse Ox O2 Delivery O2 Flow Rate FiO2 08/14/18 06:38 97.8 97 18 137/85 (102) 08/12/18 17:31 100 08/08/18 21:22 Room Air Prachi Young Aug 14, 2018 11:14
[2018-08-14 11:23] VITALS: BP 137/85
[2018-08-14 11:40] LABS: HEMATOCRIT 46.1 % (36.0-47.0); HEMOGLOBIN 16.3 g/dl (12.0-15.5); MEAN CORPUSCULAR HEMOGLOBIN 30.5 pg (27.0-33.0); MEAN CORPUSCULAR HGB CONC 35.4 g/dl (32.0-36.5); MEAN CORPUSCULAR VOLUME 86.2 fl (80.0-96.0); PLATELET COUNT, AUTOMATED 201 10^3/uL (150-450); RED BLOOD COUNT 5.35 10^6/uL (4.00-5.40); WHITE BLOOD COUNT 5.8 10^3/uL (4.0-10.0)
[2018-08-14 12:12] LABS: ALBUMIN 4.4 GM/DL (3.2-5.2); ALT/SGPT 17 U/L (12-78); BILIRUBIN,TOTAL 0.9 MG/DL (0.2-1.0); BLOOD UREA NITROGEN 15 MG/DL (7-18); CALCIUM LEVEL 9.1 MG/DL (8.5-10.1); CARBON DIOXIDE LEVEL 29 MEQ/L (21-32); CHLORIDE LEVEL 104 MEQ/L (98-107); CREATININE FOR GFR 0.79 MG/DL (0.55-1.30); GLOMERULAR FILTRATION RATE > 60.0 (>60); GLUCOSE, FASTING 92 MG/DL (70-100); POTASSIUM SERUM 4.4 MEQ/L (3.5-5.1); SODIUM LEVEL 140 MEQ/L (136-145); TOTAL PROTEIN 7.7 GM/DL (6.4-8.2)
--- NOTE | 2018-08-14 19:40 | MHIPN ---
DATE OF VISIT: 08/12/2018 The patient again had her face covered with her bed sheet but I could actually see part of her face but when I introduced myself she fully covered her face and she refused to answer any of my questions. MENTAL STATUS EXAM: I am unable to complete mental status exam since the patient will not speak to me. DIAGNOSES: 1. Rule out mood disorder unspecified. TREATMENT PLAN: The patient's told staff yesterday that the patient has been drinking on a daily basis to the point where she passes out and this has been going on since May so we did start her on a CIWA. Of note is that her blood pressure has been pretty much within normal limits. This morning it was 116/68. She has been refusing all medications. Apparently, the patient has also been refusing much of by mouth intake and so staff will continue to encourage the patient to do so. PARAS
[2018-08-15] MEDS: FOLIC ACID 1 MG TAB PO SCH (09:00)
[2018-08-15] MEDS: MULTIVITAMINS/MINERALS THERAP 1 TAB PO SCH (09:00)
--- NOTE | 2018-08-15 09:24 | MHIPNPDOC ---
[facility] Progress Note Progress Note DATE OF SERVICE: 08/15/18 HISTORY: Patient is a 33 -year-old , dependant, female, who was admitted after pt was brought in by police at per pt's called them stating the pt called him and told him she was going to kill herself. When MP's arrived to pt's home they found her in the garage with the car running, CO everywhere, broken glass on the floor everywhere, ceiling fan and detectors pulled out of [place] and destroyed on the floor. In the ED pt denied SI stating the car was running b/c she was going somewhere and couldn't find her purse. She denied calling her . 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 She was evasive and laughing during evaluation in the ED. Pt seen in room and refusing to talk to anyone. Per staff pt standing in her closet and won't come out. When I saw her she was being seen by nurse and no longer in her closet but did attempt to return to her closest after it was clear she was not going to talk to anyone. She appears more behavioral and annoyed she's here rather than psychotic. Pt advised she will be locked out of her room if she doesn't refrain from standing in the closet. Pt sat on her bed. Pt is very uncooperative. History gathered from ED records as pt refusing to talk to anyone. VITAL SIGNS: See below. NEW TEST RESULTS: See below. CURRENT MEDICATIONS: See below. MENTAL STATUS EXAMINATION: General Appearance: well groomed, appears stated age, hospital scubs/clothing, head under covers, irritated when I moved cover a little to see face and rudely said "I don't want to talk to you... I don't know who you are." even though I've repeatedly introduced myself to her. Build: average Demeanor: withdrawn, guarded Eye Contact: poor Activity: average Behavior: uncooperative, withdrawn, other (refusing to talk to anyone) Speech: impoverished Mood: irritable Mood "Peachy" Affect: constricted, inappropriate Thought Process: other (unable to assess) Thought Content (Delusions): other (unable to assess) Thought Content (Other): other (unable to assess) Thought Content (Aggressive): other (unable to assess) Perception (Hallucinations): other (unable to assess) Perception (Other): other (unable to assess) Cognition (Impairment of): unable to assess Cognition(Intelligence Est.): other (unable to assess) Oriented: Awake, Alert Insight: poor Judgment: Poor Psychosis: Other (unable to assess) DIAGNOSES: Psychosis unspecified Per Documentation: Hx of Schizophrenia Hx alcohol/opiate use d/o ASSESSMENT:Pt seen in room and and did talk to me stating that she's "peachy." Otherwise not very cooperative with interview. States she ate cornflakes today she told me. No motivation to leave room and stated "maybe" when encouraged. Encouraged to take medications and stated "I'm not taking medication... I don't need it." Appears paranoid and possibly delusional. Pt appears to be very behavioral and paranoid refusing to cooperate with care. Pt advised this morning when seen that she will be locked out of her room during the day so that she can start participating in her treatment rather than isolating in bed refusing to cooperate in any way. Per yesterday "Pt's brought in copies of bizarre nonsensical texts from pts, pictures of the home where to had place objects and paper over outlets b/c she thought cameras were in them, punch holes in the [place] with a dumbbell b/c she though people where talking in the [place], and took off and destroyed every light ficture in home (bedroom litterly look destroys, fan detroyed on floor) b/c she thought there were cameras in them. Pt brought in pt history of diagnosis of schizophrenia in [place] when admitted. Pt thru out history denied anything wrong with her and very resistant to psychiatric treatment. Pt's father recently due to liver cirrhosis. in documentation indicated history of opiate and alcohol abuse now s liliana. Staff unable to speak to about pt as she will not sign consent." Pt refusing abilify 5mg bid for psychosis and may need to start TOO if pt continues to refuse. Will encourage pt to take meds that she's currently refusing. Pt uncooperative with staff, not talking about reasons for admission. MANAGEMENT PLAN: pt to be moved to single room and lock out of room for 8am to 9pm to promote treatment participation Medications: abilify 5mg bid TIME SPENT: 30 minutes. Vital Signs Vital Signs Date Time Temp Pulse Resp B/P (MAP) Pulse Ox O2 Delivery O2 Flow Rate FiO2 08/14/18 11:23 97 137/85 08/14/18 06:38 97.8 18 08/12/18 17:31 100 Laboratory Data 24H Labs Laboratory Tests 2 08/14/18 11:14: Nucleated Red Blood Cells % (auto) 0.0, Anion Gap 7L, Glomerular Filtration Rate > 60.0, Blood Urea Nitrogen 15, Creatinine 0.79, Sodium Level 140, Potassium Lev el 4.4, Chloride Level 104, Carbon Dioxide Level 29, Calcium Level 9.1, Aspartate Amino Transf (AST/SGOT) 19, Alanine Aminotransferase (ALT/SGPT) 17, Alkaline Phosphatase 55, Total Bilirubin 0.9, Total Protein 7.7, Albumin 4.4, Albumin/Globulin Ratio 1.33 CBC/BMP Laboratory Tests 08/14/18 11:14 Red Blood Count 5.35, Mean Corpuscular Volume 86.2, Mean Corpuscular Hemoglobin 30.5, Mean Corpuscular Hemoglobin Concent 35.4, Red Cell Distribution Width 12.2, Calcium Level 9.1, Aspartate Amino Transf (AST/SGOT) 19, Alanine Aminotransferase (ALT/SGPT) 17, Alkaline Phosphatase 55, Total Bilirubin 0.9, Total Protein 7.7, Albumin 4.4 Current Medications Current Medications Acetaminophen (Tylenol Tab) 650 mg Q6HP PRN PO HEADACHE or DISCOMFORT; Start 08/08/18 at 19:15 Al Hydrox/Mg Hydrox/Simethicone (Mylanta) 30 ml Q4HP PRN PO HEART BURN/INDIGESTION; Start 08/08/18 at 19:15 Aripiprazole (AbiLIFY) 5 mg BID PO ; Start 08/14/18 at 09:00 Fluoxetine HCl (PROzac) 10 mg DAILY PO ; Start 08/11/18 at 09:00; Stop 08/14/18 at 10:34; Status DC Folic Acid (Folic Acid) 1 mg DAILY PO ; Start 08/12/18 at 09:00 Home Med (Med Rec Complete!) ASDIRECTED XX ; Start 08/08/18 at 19:45; Stop 08/08/18 at 19:48; Status DC Lorazepam (Ativan) 2 mg ASDIRECTED PRN PO SEE PROTOCOL; Start 08/11/18 at 20:15 Magnesium Hydroxide (Milk Of Magnesia) 30 ml DAILYPRN PRN PO CONSTIPATION; Start 08/08/18 at 19:15 Multivitamins (Theragram-M) 1 tab DAILY PO ; Start 08/12/18 at 09:00 Thiamine HCl (Thiamine HCl) 100 mg BID PO ; Start 08/11/18 at 21:00; Stop at 09:01; Status DC Trazodone HCl (Desyrel) 50 mg QHSP PRN PO INSOMNIA; Start 08/08/18 at 19:15 Allergies Coded Allergies: No Known Allergies (Unverified , 01/20/17) KONSTANTIN KHAN DO Aug 15, 2018 9:24 am
[2018-08-15 18:00] VITALS: BP 130/80
[2018-08-16] MEDS: FOLIC ACID 1 MG TAB PO SCH (09:00)
[2018-08-16] MEDS: MULTIVITAMINS/MINERALS THERAP 1 TAB PO SCH (09:00)
--- NOTE | 2018-08-16 09:51 | MHIPNPDOC ---
[facility] Progress Note Progress Note DATE OF SERVICE: 08/16/18 HISTORY: Patient is a 33 -year-old , dependant, female, who was admitted after pt was brought in by police at per pt's c alled them stating the pt called him and told him she was going to kill herself. When MP's arrived to pt's home they found her in the garage with the car running, CO everywhere, broken glass on the floor everywhere, ceiling fan and detectors pulled out of [place] and destroyed on the floor. In the ED pt denied SI stating the car was running b/c she was going somewhere and couldn't find her purse. She denied calling her . 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 She was evasive and laughing during evaluation in the ED. Pt seen in room and refusing to talk to anyone. Per staff pt standing in her closet and won't come out. When I saw her she was being seen by nurse and no longer in her closet but did attempt to return to her closest after it was clear she was not going to talk to anyone. She appears more behavioral and annoyed she's here rather than psychotic. Pt advised she will be locked out of her room if she doesn't refrain from standing in the closet. Pt sat on her bed. Pt is very uncooperative. History gathered from ED records as pt refusing to talk to anyone. VITAL SIGNS: See below. NEW TEST RESULTS: See below. CURRENT MEDICATIONS: See below. MENTAL STATUS EXAMINATION: General Appearance: well groomed, appears stated age, hospital scubs/clothing, head under covers, irritated when I moved cover a little to see face and rudely said "I don't want to talk to you... I don't know who you are." even though I've repeatedly introduced myself to her. Build: average Demeanor: withdrawn, guarded Eye Contact: poor Activity: average Behavior: uncooperative, withdrawn, other (refusing to talk to anyone) Speech: impoverished Mood: irritable Mood "Peachy" Affect: constricted, inappropriate Thought Process: other (unable to assess) Thought Content (Delusions): other (unable to assess) Thought Content (Other): other (unable to assess) Thought Content (Aggressive): other (unable to assess) Perception (Hallucinations): other (unable to assess) Perception (Other): other (unable to assess) Cognition (Impairment of): unable to assess Cognition(Intelligence Est.): other (unable to assess) Oriented: Awake, Alert Insight: poor Judgment: Poor Psychosis: Other (unable to assess) DIAGNOSES: Psychosis unspecified Per Documentation: Hx of Schizophrenia Hx alcohol/opiate use d/o ASSESSMENT:Pt seen in room and and did talk to me at length, slightly defensive. Stated she didn't want to take medication. Ask "Why do you think medication would help me." And gave her my clinical reasonings base on what her has told staff and pictures of home brought in as discussed below. Stated "How do you know that wasn't my ... He lives there too." Told her he was at [facility]. Pt asked what medication I was recommending and I told her abilify and she stated she's taken that before and it wasn't helpful. Told her can start her on inderal that based on her clinical picture here and evidence from home I believe it would be helpful. Told her if continues to refuse may have to go to court for TOO. Pt stated "I'll think about it." Encouraged to not isolate in room. She was more cooperative with interview today. Appears paranoid and delusional. Pt appears to be very behavioral and paranoid refusing to cooperate with care. Per earlier this week "Pt's brought in copies of bizarre nonsensical texts from pts, pictures of the home where to had place objects and paper over outlets b/c she thought cameras were in them, punch holes in the ju[place]rez with a dumbbell b/c she though people where talking in the ju[place], and took off and destroyed every light ficture in home (bedroom litterly look destroys, fan destroyed on floor) b/c she thought there were cameras in them. Pt brought in pt history of diagnosis of schizophrenia in [place] when admitted. Pt thru out history denied anything wrong with her and very resistant to psychiatric treatment. Pt's father recently due to liver cirrhosis. in documentation indicated history of opiate and alcohol abuse now sober. Staff unable to speak to about pt as she will not sign consent." Pt refusing abilify 5mg bid for psychosis and may need to start TOO if pt continues to refuse. Will d/c abilify and start invega for psychosis with plan for invega sustenna in future for compliance. Will encourage pt to take meds that she's currently refusing. Pt uncooperative with staff, not talking about reasons for admission. MANAGEMENT PLAN: pt to be moved to single room and lock out of room for 8am to 9pm to promote treatment participation Medications: invega 3mg bid TIME SPENT: 30 minutes. Vital Signs Vital Signs Date Time Temp Pulse Resp B/P (MAP) Pulse Ox O2 Delivery O2 Flow Rate FiO2 08/15/18 18:00 98.3 94 18 130/80 (97) 08/12/18 17:31 100 Current Medications Current Medications Acetaminophen (Tylenol Tab) 650 mg Q6HP PRN PO HEADACHE or DISCOMFORT; Start 08/08/18 at 19:15 Al Hydrox/Mg Hydrox/Simethicone (Mylanta) 30 ml Q4HP PRN PO HEARTBURN/INDIGESTION; Start 08/08/18 at 19:15 Aripiprazole (AbiLIFY) 5 mg BID PO ; Start 08/14/18 at 09:00 Fluoxetine HCl (PROzac) 10 mg DAILY PO ; Start 08/11/18 at 09:00; Stop 08/14/18 at 10:34; Status DC Folic Acid (Folic Acid) 1 mg DAILY PO ; Start 08/12/18 at 09:00 Home Med (Med Rec Complete!) ASDIRECTED XX ; Start 08/08/18 at 19:45; Stop 08/08/18 at 19:48; Status DC Lorazepam (Ativan) 2 mg ASDIRECTED PRN PO SEE PROTOCOL; Start 08/11/18 at 20:15 Magnesium Hydroxide (Milk Of Magnesia) 30 ml DAILYPRN PRN PO CONSTIPATION; Start 08/08/18 at 19:15 Multivitamins (Theragram-M) 1 tab DAILY PO ; Start 08/12/18 at 09:00 Thiamine HCl (Thiamine HCl) 100 mg BID PO ; Start 08/11/18 at 21:00; Stop 08/14/18 at 09:01; Status DC Trazodone HCl (Desyrel) 50 mg QHSP PRN PO INSOMNIA; Start 08/08/18 at 19:15 Allergies Coded Allergies: No Known Allergies (Unverified , 01/20/17) KONSTANTIN KHAN DO Aug 16, 2018 9:51 am
[2018-08-16] MEDS ORDERED: hydrOXYzine 25 MG TAB PO PRN (10:00)
[2018-08-16] MEDS: PALIPERIDONE 3 MG ER TAB (INVEGA) PO SCH (21:00)
[2018-08-17 06:44] VITALS: BP 112/78
[2018-08-17 08:05] VITALS: BP 112/78
[2018-08-17] MEDS: PALIPERIDONE 3 MG ER TAB (INVEGA) PO SCH ×2 (09:00→20:37)
[2018-08-17] MEDS: MULTIVITAMINS/MINERALS THERAP 1 TAB PO SCH (09:00)
[2018-08-17] MEDS: **PENDING PPD ENTRY XX SCH (09:00)
[2018-08-17] MEDS: FOLIC ACID 1 MG TAB PO SCH (09:00)
--- NOTE | 2018-08-17 09:01 | MHIPNPDOC ---
[facility] Progress Note Progress Note DATE OF SERVICE: 08/17/18 HISTORY: Patient is a 33 -year-old , dependant, female, who was admitted after pt was brought in by police at per pt's called them stating the pt called him and told him she was going to kill herself. When MP's arrived to pt's home they found her in the garage with the car running, CO everywhere, broken glass on the floor everywhere, ceiling fan and detectors pulled out of ju[place] and destroyed on the floor. In the ED pt denied SI stating the car was running b/c she was going somewhere and couldn't find her purse. She denied calling her . She admitted she didn't have a ro[employer] driver's license. She was evasive and laughing during evaluation in the ED. Pt seen in room and refusing to talk to anyone. Per staff pt standing in her closet and won't come out. When I saw her she was being seen by nurse and no longer in her closet but did attempt to return to her closest after it was clear she was not going to talk to anyone. She appears more behavioral and annoyed she's here rather than psychotic. Pt advised she will be locked out of her room if she doesn't refrain from standing in the closet. Pt sat on her bed. Pt is very uncooperative. History gathered from ED records as pt refusing to talk to anyone. VITAL SIGNS: See below. NEW TEST RESULTS: See below. CURRENT MEDICATIONS: See below. MENTAL STATUS EXAMINATION: General Appearance: well groomed, appears stated age, own clothing, isolating in room mostly Build: average Demeanor: withdrawn, guarded, all though more cooperative with interview Eye Contact: fair Activity: average Behavior: uncooperative mostly, withdrawn Speech: impoverished, reg rate/rhythm/volume Mood: irritable, flat, reactive at times Mood "ok" Affect: constricted, flat Thought Process: linear, logical Thought Content (Delusions): paranoid delusions and suspiciousness (per believes being spied on thru electrical outlets, light fixtures, believe people in [place] and put holes in ju[place] with dumbbell) Thought Content (Other): denies si/hi Thought Content (Aggressive): none reported currently but did destroy light fixtures at home with glass all over floor b/c thought was being spied on thru them Perception (Hallucinations): possibly responding internal stimuli Perception (Other): other (unable to assess) Cognition (Impairment of): none reported Cognition(Intelligence Est.): average Oriented: Awake, Alert, oriented x3 Insight: poor Judgment: Poor Psychosis: delusional, paranoid, responding internal stimuli, uable to abstract DIAGNOSES: Psychosis unspecified Per Documentation: Hx of Schizophrenia Hx alcohol/opiate use d/o ASSESSMENT:Pt seen in room and and did talk to me at length, stating she still does not want to take any medications especially an antipsychotic b/c she doesn't believe anything is wrong with her. Her insight and judgement remain very poor. Pt is coming out of her room and eating very occasionally. Encouraged to not isolate in room. She was more cooperative with interview today. Appears paranoid and delusional. Per earlier this week "Pt's brought in copies of bizarre nonsensical texts from pts, pictures of the home where to had place objects and paper over outlets b/c she thought cameras were in them, punch holes in the ju[place] with a dumbbell b/c she though people where talking in the ju[place], and took off and destroyed every light ficture in home (bedroom litterly look destroys, fan destroyed on floor) b/c she thought there were cameras in them. Pt brought in pt history of diagnosis of schizophrenia in [place] when admitted. Pt thru out history denied anything wrong with her and very resistant to psychiatric treatment. Pt's father recently due to liver cirrhosis. in documentation indicated history of opiate and alcohol abuse now sober. Did sign consent to speak to yesterday Pt refusing invega 3mg bid for psychosis and will start proceedings for TOO and [facility] [place] [facility] [place]. Plan is to use invega for psychosis followed by invega sustenna in future for compliance. Will encourage pt to take meds that she's currently refusing. Pt remains uncooperative mostly. MANAGEMENT PLAN:continue to promote treatment participation and med compliance. Will start proceedings for TOO and mcc referral [facility]. Medications: invega 3mg bid TIME SPENT: 30 minutes. Vital Signs Vital Signs Date Time Temp Pulse Resp B/P (MAP) Pulse Ox O2 Delivery O2 Flow Rate FiO2 08/17/18 08:05 88 112/78 08/17/18 06:44 98.8 16 08/12/18 17:31 100 Current Medications Current Medications Acetaminophen (Tylenol Tab) 650 mg Q6HP PRN PO HEADACHE or DISCOMFORT; Start 08/08/18 at 19:15 Al Hydrox/Mg Hydrox/Simethicone (Mylanta) 30 ml Q4HP PRN PO HEARTBURN/INDIGESTION; Start 08/08/18 at 19:15 Aripiprazole (AbiLIFY) 5 mg BID PO ; Start 08/14/18 at 09:00; Stop 08/16/18 at 09:53; Status DC Fluoxetine HCl (PROzac) 10 mg DAILY PO ; Start 08/11/18 at 09:00; Stop 08/14/18 at 10:34; Status DC Folic Acid (Folic Acid) 1 mg DAILY PO ; Start 08/12/18 at 09:00 Home Med (Med Rec Complete!) ASDIRECTED XX ; Start 08/08/18 at 19:45; Stop 08/08/18 at 19:48; Status DC Hydroxyzine HCl (Atarax) 25 mg Q6HP PRN PO ANXIETY; Start 08/16/18 at 10:00 Lorazepam (Ativan) 2 mg ASDIRECTED PRN PO SEE PROTOCOL; Start 08/11/18 at 20:15 Magnesium Hydroxide (Milk Of Magnesia) 30 ml DAILYPRN PRN PO CONSTIPATION; Start 08/08/18 at 19:15 Multivitamins (Theragram-M) 1 tab DAILY PO ; Start 08/12/18 at 09:00 Paliperidone (Invega) 3 mg QAM PO ; Start 08/17/18 at 09:00 Paliperidone (Invega) 3 mg QHS PO ; Start 08/16/18 at 21:00 Thiamine HCl (Thiamine HCl) 100 mg BID PO ; Start 08/11/18 at 21:00; Stop 08/14/18 at 09:01; Status DC Trazodone HCl (Desyrel) 50 mg QHSP PRN PO INSOMNIA; Start 08/08/18 at 19:15 Allergies Coded Allergies: No Known Allergies (Unverified , 01/20/17) KONSTANTIN KHAN DO Aug 17, 2018 9:01 am
[2018-08-17] MEDS ORDERED: TUBERCULIN PPD 5 UNITS/0.1 ML ID ONE (09:15)
[2018-08-17 18:00] VITALS: BP 116/80
[2018-08-18 06:38] VITALS: BP 117/71
[2018-08-18] MEDS: MULTIVITAMINS/MINERALS THERAP 1 TAB PO SCH (09:00)
[2018-08-18] MEDS: PALIPERIDONE 3 MG ER TAB (INVEGA) PO SCH ×2 (09:00→21:00)
[2018-08-18] MEDS: **PENDING PPD ENTRY XX SCH (09:00)
[2018-08-18] MEDS: FOLIC ACID 1 MG TAB PO SCH (09:00)
[2018-08-18 18:47] VITALS: BP 106/74
[2018-08-19 06:08] VITALS: BP 107/63
[2018-08-19] MEDS: FOLIC ACID 1 MG TAB PO SCH (09:00)
[2018-08-19] MEDS: PALIPERIDONE 3 MG ER TAB (INVEGA) PO SCH ×2 (09:00→21:00)
[2018-08-19] MEDS: **PENDING PPD ENTRY XX SCH (09:00)
[2018-08-19] MEDS: MULTIVITAMINS/MINERALS THERAP 1 TAB PO SCH (09:00)
[2018-08-19] MEDS ORDERED: PPD DOCUMENTATION ENTRY MISC XX SCH (10:00)
[2018-08-19 18:00] VITALS: BP 104/65
[2018-08-20 06:00] VITALS: BP 106/67
[2018-08-20] MEDS: **PENDING PPD ENTRY XX SCH (09:00)
[2018-08-20] MEDS: PALIPERIDONE 3 MG ER TAB (INVEGA) PO SCH ×2 (09:00→20:48)
[2018-08-20] MEDS: FOLIC ACID 1 MG TAB PO SCH (09:00)
[2018-08-20] MEDS: MULTIVITAMINS/MINERALS THERAP 1 TAB PO SCH (09:00)
--- NOTE | 2018-08-20 10:24 | MHIPNPDOC ---
[facility] Progress Note Progress Note DATE OF SERVICE: 08/20/18 HISTORY: Patient is a 33 -year-old , dependant, female, who was admitted after pt was brought in by police at per pt's c alled them stating the pt called him and told him she was going to kill herself. When MP's arrived to pt's home they found her in the garage with the car running, CO everywhere, broken glass on the floor everywhere, ceiling fan and detectors pulled out of ju[place] and destroyed on the floor. In the ED pt denied SI stating the car was running b/c she was going somewhere and couldn't find her purse. She denied calling her . 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 She was evasive and laughing during evaluation in the ED. Pt seen in room and refusing to talk to anyone. Per staff pt standing in her closet and won't come out. When I saw her she was being seen by nurse and no longer in her closet but did attempt to return to her closest after it was clear she was not going to talk to anyone. She appears more behavioral and annoyed she's here rather than psychotic. Pt advised she will be locked out of her room if she doesn't refrain from standing in the closet. Pt sat on her bed. Pt is very uncooperative. History gathered from ED records as pt refusing to talk to anyone. VITAL SIGNS: See below. NEW TEST RESULTS: See below. CURRENT MEDICATIONS: See below. MENTAL STATUS EXAMINATION: General Appearance: well groomed, appears stated age, own clothing, isolating in room mostly Build: average Demeanor: withdrawn, guarded, all though more cooperative with interview Eye Contact: fair Activity: average Behavior: uncooperative mostly, withdrawn Speech: limited and non-spontaneous, reg rate/rhythm/volume Mood: irritable, flat, reactive at times Mood "ok" Affect: constricted, flat Thought Process: linear, logical Thought Content (Delusions): paranoid delusions and suspiciousness (per believes being spied on thru electrical outlets, light fixtures, believe people in [place] and put holes in ju[place] with dumbbell) Will not discuss what she and her talk about when he visits stating "that's confidential." informs staff though that she voices paranoia, delusions, and psychosis to him and will not discuss with staff. Thought Content (Other): denies si/hi Thought Content (Aggressive): none reported currently but did destroy light fixtures at home with glass all over floor b/c thought was being spied on thru them Perception (Hallucinations): possibly responding internal stimuli Perception (Other): other (unable to assess) Cognition (Impairment of): none reported Cognition(Intelligence Est.): average Oriented: Awake, Alert, oriented x3 Insight: poor Judgment: Poor Psychosis: delusional, paranoid, responding internal stimuli DIAGNOSES: Psychosis unspecified Per Documentation: Hx of Schizophrenia Hx alcohol/opiate use d/o ASSESSMENT:Pt seen in room and and did talk to me, stating she still does not want to take any medications especially an antipsychotic b/c she doesn't believe anything is wrong with her. Informed by that TOO was being submitted today for hopeful court hearing later this week to proceed with medication. Also advised referral thru court order for [place] [facility] [place] be submitted [place] court today. Encouraged to cooperate with treatment and med compliance though. Her insight and judgement remain very poor. Pt is coming out of her room and eating very occasionally. Encouraged to not isolate in room. She was more cooperative with interview today. Appears paranoid and delusional. Asked pt about what she and her dicuss when he visits or she speaks to him over the phone and states "that's confidential." Pts in continual communication with staff after pt signed consent for staff to speak with him and states pt endorses delusional, paranoid, psychotic ideation symptoms over phone to him and that she will not discuss with staff. Per earlier this week "Pt's brought in copies of bizarre nonsensical texts from pts, pictures of the home where to had place objects and paper over outlets b/c she thought cameras were in them, punch holes in the ju[place] with a dumbbell b/c she though people where talking in the ju[place], and took off and destroyed every light ficture in home (bedroom litterly look destroys, fan destroyed on floor) b/c she thought there were cameras in them. Pt brought in pt history of diagnosis of schizophrenia in [place] when admitted. Pt thru out history denied anything wrong with her and very resistant to psychiatric treatment. Pt's father recently due to liver cirrhosis. in documentation indicated history of opiate and alcohol abuse now sober. Did sign consent to speak to yesterday Pt refusing invega 3mg bid for psychosis and will start proceedings for TOO and skilled nursing treatment at [facility] [place]. Plan is to use invega for psychosis followed by invega jeff in future for compliance. Will encourage pt to take meds that she's currently refusing. Pt remains uncooperative mostly. MANAGEMENT PLAN:continue to promote treatment participation and med compliance. Will start proceedings for TOO and skilled nursing referral [facility]. Medications: invega 3mg bid TIME SPENT: 30 minutes. Vital Signs Vital Signs Date Time Temp Pulse Resp B/P (MAP) Pulse Ox O2 Delivery O2 Flow Rate FiO2 08/20/18 06:00 98.2 94 18 106/67 (80) Current Medications Current Medications Acetaminophen (Tylenol Tab) 650 mg Q6HP PRN PO HEADACHE or DISCOMFORT; Start 08/08/18 at 19:15 Al Hydrox/Mg Hydrox/Simethicone (Mylanta) 30 ml Q4HP PRN PO HEARTBURN/INDIGESTION; Start 08/08/18 at 19:15 Aripiprazole (AbiLIFY) 5 mg BID PO ; Start 08/14/18 at 09:00; Stop 08/16/18 at 09:53; Status DC Fluoxetine HCl (PROzac) 10 mg DAILY PO ; Start 08/11/18 at 09:00; Stop 08/14/18 at 10:34; Status DC Folic Acid (Folic Acid) 1 mg DAILY PO ; Start 08/12/18 at 09:00 Home Med (Med Rec Complete!) ASDIRECTED XX ; Start 08/08/18 at 19:45; Stop 08/08/18 at 19:48; Status DC Hydroxyzine HCl (Atarax) 25 mg Q6HP PRN PO ANXIETY; Start 08/16/18 at 10:00 Lorazepam (Ativan) 2 mg ASDIRECTED PRN PO SEE PROTOCOL; Start 08/11/18 at 20:15; Stop 08/17/18 at 09:30; Status DC Magnesium Hydroxide (Milk Of Magnesia) 30 ml DAILYPRN PRN PO CONSTIPATION; Start 08/08/18 at 19:15 Multivitamins (Theragram-M) 1 tab DAILY PO ; Start 08/12/18 at 09:00 Non-Formulary Medication ( See Comment Field Below ) SEE COMMENTS SECTION 1T@10 XX ; Start 08/19/18 at 10:00; Stop 08/20/18 at 09:59; Status UNV Non-Formulary Medication ( See Comment Field Below ) SEE LABEL COMMENTS DAILY XX ; Start 08/17/18 at 09:00 Paliperidone (Invega) 3 mg QAM PO ; Start 08/17/18 at 09:00 Paliperidone (Invega) 3 mg QHS PO ; Start 08/16/18 at 21:00 Thiamine HCl (Thiamine HCl) 100 mg BID PO ; Start 08/11/18 at 21:00; Stop 08/14/18 at 09:01; Status DC Trazodone HCl (Desyrel) 50 mg QHSP PRN PO INSOMNIA; Start 08/08/18 at 19:15 Allergies Coded Allergies: No Known Allergies (Unverified , 01/20/17) KONSTANTIN KHAN DO Aug 20, 2018 10:02 am
--- NOTE | 2018-08-20 10:31 | MHIPNPDOC ---
[facility] Progress Note Progress Note TREATMENT OVER OBJECTION ADMIT DATE: 08/08/2018 DATE OF SERVICE: 08/20/2018 ATTENDING DOCTOR: Loni Wilson DO FAMILY CONTACTS: SECTION I: CLINICAL SUMMARY: Patient is a 33 -year-old , dependant, female, who was admitted after pt was brought in by police at [facility] pt's called them stating the pt called him and told him she was going to kill herself. When MP's arrived to pt's home they found her in the garage with the car running, CO everywhere, broken glass on the floor everywhere, ceiling fan and detectors pulled out of ju[place]rez and destroyed on the floor. In the ED pt denied SI stating the car was running b/c she was going somewhere and couldn't find her purse. She denied calling her . 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 She was evasive and laughing during evaluation in the ED. Pt is currently more cooperative with daily interview and assessment but still states she still does not want to take any medications especially an antipsychotic b/c she doesn't believe anything is wrong with her. Her insight and judgement remain very poor. Pt is coming out of her room and eating very occasionally and predominately isolates in her room. Appears paranoid and delusional. Pt's brought in copies of bizarre nonsensical texts from pts, pictures of the home where to had place objects and paper over outlets b/c she thought cameras were in them, punch holes in the juárez with a dumbbell b/c she though people were talking in the juárez, and took off and destroyed every light fixture in home (bedroom litterly looks destroys, fan destroyed on floor) b/c she thought there were cameras in them. Pts brought in pt history of diagnosis of schizophrenia in [place] when admitted. Pt thru out information provided by her denied anything wrong with her and very resistant to psychiatric treatment. in documentation indicated history of opiate and alcohol abuse now sober. Pts in continual communication with staff after pt signed consent for staff to speak with him and states pt endorses delusional, paranoid, psychotic ideation symptoms over phone to him and that she will not discuss with staff. Pt refusing invega 3mg bid for psychosis. She was provided risks and benefits of invega for her current symptoms and psychosis. Plan is to use invega for psychosis followed by invega sustenna in future for compliance. Will encourage pt to take meds that she's currently refusing. Pt remains uncooperative mostly. DIAGNOSIS: Paranoid Schizophrenia SECTION II: Proposed Treatment. 1. Course of treatment recommended by treating physician: To prescribe an antipsychotic as the follows: - Invega 3 mg twice a day with the option of increasing this dose progressively up to 6 or 9 mg twice a day as tolerated for signs and symptoms of psychosis. Initiate Invega Sustenna 234mg loading dose IM injection and then, pending medication tolerance, Invega Sustenna 156mg maintenance dose IM injection for medication compliance 3 days later. If the patient refuses treatment by mouth, the patient should receive - Zyprexa IM 10 mg at various doses up to a total of 30 mg per day. The patient will then be maintained on Invega Sustenna monthly injection with doses up to 234 mg IM every month once she is discharged Cogentin 0.5 to 1mg daily up to a total of 4 mg per day in divided doses if Parkinsonian symptoms are evident. 2. Reasonable alternatives if any are:Haldol 5-10mg IM and Ativan 2mg IM in the event patient becomes a danger to herself or others during her treatment. The patient requires an antipsychotic medication for the treatment of her psychotic condition. 3. Has the patient been tried on the proposed treatment: The patient has been on trials of Abilify in the past with limited efficacy. (Pt stated was not beneficial) 4. Anticipated benefits to proposed treatment: The proposed treatment regimen will be effective for paranoid schizophrenia making her able to be relatively independent in the community and not require inpatient psychiatric hospitalization. 5. Reasonable foreseeable adverse side effects: Parkinsonian symptoms, weight gain, sedation, side effects of neuroleptics. In rare cases, neuroleptic malignant syndrome and tardive dyskinesia may develop. However, the treatment team believes that the benefit outweighs any risk. 6. Prognosis without treatment: The patient without any appropriate antipsychotic medication will remain chronically psychotic and unable to function independently in the community and will require prison psychiatric hospitalization. The patient is at risk of being a danger to herself or others due to lack of insight and judgement. The patient will not be able to take care of any of her physical or mental health needs. SECTION III: Patient's capacity. 1. Explained to the patient: A. Condition: Yes. B. Proposed treatment: Yes. C. Anticipated benefits of treatment: Yes. D. Risks of adverse side effects of treatment: Yes. E. Availability of other treatments and comparison of benefits and risks: Yes. F. Risk of no treatment: Yes. The patient is offered the opportunity to review various options, but does not take advantage of this opportunity. The patient appears to be delusional, paranoid, psychotic. She continues to exhibit paranoid, psychotic behavior and is very uncooperative with treatment on unit due to paranoid psychosis on inpatient unit. 2. State the nature of the patient's objections to treatment: The patient believes she people are spying on her thru electrical outlets, light fixtures, the juárez and that it will harm her herself and others as shown in pictures of her home provided by her in which she put holes in juárez with a dumbbell looking for people listening to her, cover electric outlets with paper or pulled out, and removed light fixtures and destroying them so glass all over the home looking for spying devices. 3. The patient's capacity: In my opinion, the patient lacks the capacity to makeany important decisions on her treatment at this time. The patient lacks insight into the nature and severity of her illness, her need for treatment and her prognosis. SECTION IV: LIKELIHOOD FOR DANGEROUS BEHAVIOR: 1. The patient is believed to be dangerous to others at the hospital unless treated: Yes. The patient is quite psychotic with poor insight and judgment with the capacity of becoming physically aggressive towards others. 2. Is the patient believed to be likely dangerous to self if not treated: Yes. The patient's chronic psychosis makes her unable to provide for herself both physically and mentally. The patient may also potentially engage in physically aggressive behavior towards others which puts the patient also at risk of being harmed. SECTION V: ANY OTHER INFORMATION: The patient's clinical presentation and behavior on the unit supports treatment over objection, both for her safety as well as the safety of others in the community. LONI WILSON DO Vital Signs Vital Signs Date Time Temp Pulse Resp B/P (MAP) Pulse Ox O2 Delivery O2 Flow Rate FiO2 08/20/18 06:00 98.2 94 18 106/67 (80) Current Medications Current Medications Acetaminophen (Tylenol Tab) 650 mg Q6HP PRN PO HEADACHE or DISCOMFORT; Start 08/08/18 at 19:15 Al Hydrox/Mg Hydrox/Simethicone (Mylanta) 30 ml Q4HP PRN PO HEARTBURN/INDIGESTION; Start 08/08/18 at 19:15 Aripiprazole (AbiLIFY) 5 mg BID PO ; Start 08/14/18 at 09:00; Stop 08/16/18 at 09:53; Status DC Fluoxetine HCl (PROzac) 10 mg DAILY PO ; Start 08/11/18 at 09:00; Stop 08/14/18 at 10:34; Status DC Folic Acid (Folic Acid) 1 mg DAILY PO ; Start 08/12/18 at 09:00 Home Med (Med Rec Complete!) ASDIRECTED XX ; Start 08/08/18 at 19:45; Stop 08/08/18 at 19:48; Status DC Hydroxyzine HCl (Atarax) 25 mg Q6HP PRN PO ANXIETY; Start 08/16/18 at 10:00 Lorazepam (Ativan) 2 mg ASDIRECTED PRN PO SEE PROTOCOL; Start 08/11/18 at 20:15; Stop 08/17/18 at 09:30; Status DC Magnesium Hydroxide (Milk Of Magnesia) 30 ml DAILYPRN PRN PO CONSTIPATION; Start 08/08/18 at 19:15 Multivitamins (Theragram-M) 1 tab DAILY PO ; Start 08/12/18 at 09:00 Non-Formulary Medication ( See Comment Field Below ) SEE COMMENTS SECTION 1T@10 XX ; Start 08/19/18 at 10:00; Stop 08/20/18 at 09:59; Status UNV Non-Formulary Medication ( See Comment Field Below ) SEE LABEL COMMENTS DAILY XX ; Start 08/17/18 at 09:00 Paliperidone (Invega) 3 mg QAM PO ; Start 08/17/18 at 09:00 Paliperidone (Invega) 3 mg QHS PO ; Start 08/16/18 at 21:00 Thiamine HCl (Thiamine HCl) 100 mg BID PO ; Start 08/11/18 at 21:00; Stop 08/14/18 at 09:01; Status DC Trazodone HCl (Desyrel) 50 mg QHSP PRN PO INSOMNIA; Start 08/08/18 at 19:15 Allergies Coded Allergies: No Known Allergies (Unverified , 01/20/17) LONI WILSON DO Aug 20, 2018 10:31 am
--- NOTE | 2018-08-20 11:04 | MHIPNPDOC ---
[facility] Progress Note Progress Note DATE OF SERVICE: 08/20/18 ADMIT DATE: 08/08/2018 DATE OF SERVICE: 08/20/2018 ATTENDING DOCTOR: Loni Wilson DO FAMILY CONTACTS: SECTION I: CLINICAL SUMMARY: Patient is a 33 -year-old , dependant, female, who was brought in by the MP's because her called them saying the pt had called him and told him she was going to kill herself. She was in the garage when MP's arrived, the car with the car running, CO everywhere, broken glass on the floor everywhere, ceiling fan and detectors pulled out of ju[place]rez and destroyed on the floor. In the ED pt denied SI stating the car was running b/c she was going somewhere and couldn't find her purse. She said she did not call her . 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 She displayed inappropriate affect during her evaluation at the Ed, where she was noted to be evasive. she has been more cooperative but continues to verbalize that she still does not want to take any medications especially an antipsychotic b/c she doesn't believe anything is wrong with her. Her insight and judgement remain very poor. Pt is coming out of her room and eating very occasionally and predominately isolates in her room. Appears paranoid and delusional. Pt's brought in copies of bizarre nonsensical texts from pts, pictures of the home where to had place objects and paper over outlets b/c she thought cameras were in them, punch holes in the juárez with a dumbbell b/c she though people were talking in the juárez, and took off and destroyed every light fixture in home (bedroom litterly looks destroys, fan destroyed on floor) b/c she thought there were cameras in them. Pts brought in pt history of diagnosis of schizophrenia in [place] when admitted. Pt thru out information provided by her denied anything wrong with her and very resistant to psychiatric treatment. in documentation indicated history of opiate and alcohol abuse now sober. Pts in continual communication with staff after pt signed consent for staff to speak with him and states pt endorses delusional, paranoid, psychotic ideation symptoms over phone to him and that she will not discuss with staff. Pt refusing invega 3mg bid for psychosis. She was provided risks and benefits of invega for her current symptoms and psychosis. The plan is to use invega for psychosis followed by invega jeff in future for compliance. Will continue to encourage to take meds because she is still refusing them. she has b een and is uncooperative. DIAGNOSIS: Paranoid Schizophrenia SECTION II: Proposed Treatment. 1. Course of treatment recommended by treating physician: To prescribe an antipsychotic as the follows: - Invega 3 mg twice a day with the option of progressively increasing the dose up to 6 or 9 mg twice a day as tolerated for signs and symptoms of psychosis. Start Invega Sustenna 234mg loading dose IM injection and then, pending medication tolerance, Invega Sustenna 156mg maintenance dose IM injection for medication compliance 3 days later. If the patient would refuse taking medications orally, the patient should receive - Zyprexa IM 10 mg at various doses up to a total of 30 mg per day. The patient will then be maintained on Invega Sustenna monthly injection with doses up to 234 mg IM every month once she is discharged Cogentin 0.5 to 1mg daily up to a total of 4 mg per day in divided doses if Parkinsonian symptoms are evident. 2. Reasonable alternatives if any are:Haldol 5-10mg IM and Ativan 2mg IM in the event patient becomes a danger to herself or others during her treatment. The patient has a psychotic disorder and for that reason, she needs an antipsychotic 3. Has the patient been tried on the proposed treatment?: The patient has been on Abilify in the past but she didn't have a good response to treatment. (Pt stated was not beneficial) 4. Anticipated benefits to proposed treatment: The proposed treatment regimen will be effective for paranoid schizophrenia, allowing her to attain a level of functioning that will allow her to have a quality of life and to be relatively independent in the community and not require inpatient psychiatric hospitalization. 5. Reasonable foreseeable adverse side effects: Parkinsonian symptoms, weight gain, sedation, side effects of neuroleptics. In rare cases, neuroleptic malignant syndrome and tardive dyskinesia may develop. However, the treatment team believes that the benefit outweighs any risk. 6. 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 The patient is a risk for herself and others because she is psychotic but she lacks the insight and judgment, she lacks the capacity to recognize and accept that she is ill. The patient will not be able to take care of any of her physical or mental health needs. SECTION III: Patient's capacity. 1. Explained to the patient: A. Condition: Yes. B. Proposed treatment: Yes. C. Anticipated benefits of treatment: Yes. D. Risks of adverse side effects of treatment: Yes. E. Availability of other treatments and comparison of benefits and risks: Yes. F. Risk of no treatment: Yes. This insurance underwriter sales met with the patient on numerous occasions, explaining why it is necessary to take antipsychotic medications but she appears to be delusional, paranoid, psychotic. She continues to exhibit paranoid, psychotic behavior and is very uncooperative with treatment on unit due to paranoid psychosis on inpatient unit. She remains isolative to her room, with very little interaction with staff and other patients. 2. State the nature of the patient's objections to treatment: The patient believes she people are spying on her thru electrical outlets, light fixtures, the juárez and that it will harm her herself and others as shown in pictures of her home provided by her in which she put holes in juárez with a dumbbell looking for people listening to her, cover electric outlets with paper or pulled out, and removed light fixtures and destroying them so glass all over the home looking for spying devices. 3. The patient's capacity: In my opinion, the patient lacks the capacity to makeany important decisions on her treatment at this time because she lacks insight into the severity of her illness and she is still in denial, she doesn't want to admit that she has an illness that has impaired her level of functioning. She doesn't see the need for treatment and this, unfortunately affects her prognosis. SECTION IV: LIKELIHOOD FOR DANGEROUS BEHAVIOR: 1. The patient is believed to be dangerous to others at the hospital unless treated: Yes. The patient is psychotic, she has no insight and she has poor judgment. all of these make her dangerous to others 2. Is the patient believed to be likely dangerous to self if not treated: Yes. The patient's chronic psychosis makes her unable to provide for herself both physically and mentally. The patient may also potentially engage in physically aggressive behavior towards others which puts the patient also at risk of being harmed. SECTION V: ANY OTHER INFORMATION: The patient lack of interaction with staff, with other patients, the fact that she has remained mostly isolative to her room, support the TOO, which will be beneficial to her, her life and those around her. Vital Signs Vital Signs Date Time Temp Pulse Resp B/P (MAP) Pulse Ox O2 Delivery O2 Flow Rate FiO2 08/20/18 06:00 98.2 94 18 106/67 (80) Current Medications Current Medications Acetaminophen (Tylenol Tab) 650 mg Q6HP PRN PO HEADACHE or DISCOMFORT; Start 08/08/18 at 19:15 Al Hydrox/Mg Hydrox/Simethicone (Mylanta) 30 ml Q4HP PRN PO HEARTBURN/INDIGESTION; Start 08/08/18 at 19:15 Aripiprazole (AbiLIFY) 5 mg BID PO ; Start 08/14/18 at 09:00; Stop 08/16/18 at 09:53; Status DC Fluoxetine HCl (PROzac) 10 mg DAILY PO ; Start 08/11/18 at 09:00; Stop 08/14/18 at 10:34; Status DC Folic Acid (Folic Acid) 1 mg DAILY PO ; Start 08/12/18 at 09:00 Home Med (Med Rec Complete!) ASDIRECTED XX ; Start 08/08/18 at 19:45; Stop 08/08/18 at 19:48; Status DC Hydroxyzine HCl (Atarax) 25 mg Q6HP PRN PO ANXIETY; Start 08/16/18 at 10:00 Lorazepam (Ativan) 2 mg ASDIRECTED PRN PO SEE PROTOCOL; Start 08/11/18 at 20:15; Stop 08/17/18 at 09:30; Status DC Magnesium Hydroxide (Milk Of Magnesia) 30 ml DAILYPRN PRN PO CONSTIPATION; Start 08/08/18 at 19:15 Multivitamins (Theragram-M) 1 tab DAILY PO ; Start 08/12/18 at 09:00 Non-Formulary Medication ( See Comment Field Below ) SEE COMMENTS SECTION 1T@10 XX ; Start 08/19/18 at 10:00; Stop 08/20/18 at 09:59; Status UNV Non-Formulary Medication ( See Comment Field Below ) SEE LABEL COMMENTS DAILY XX ; Start 08/17/18 at 09:00 Paliperidone (Invega) 3 mg QAM PO ; Start 08/17/18 at 09:00 Paliperidone (Invega) 3 mg QHS PO ; Start 08/16/18 at 21:00 Thiamine HCl (Thiamine HCl) 100 mg BID PO ; Start 08/11/18 at 21:00; Stop 08/14/18 at 09:01; Status DC Trazodone HCl (Desyrel) 50 mg QHSP PRN PO INSOMNIA; Start 08/08/18 at 19:15 Allergies Coded Allergies: No Known Allergies (Unverified , 01/20/17) ELVIA HOFFMAN MD Aug 20, 2018 11:04
[2018-08-20 18:14] VITALS: BP 111/63
[2018-08-21] MEDS: FOLIC ACID 1 MG TAB PO SCH (08:53)
[2018-08-21] MEDS: PALIPERIDONE 3 MG ER TAB (INVEGA) PO SCH ×2 (08:53→21:00)
[2018-08-21] MEDS: **PENDING PPD ENTRY XX SCH (08:53)
[2018-08-21] MEDS: MULTIVITAMINS/MINERALS THERAP 1 TAB PO SCH (08:53)
--- NOTE | 2018-08-21 09:44 | MHIPNPDOC ---
[facility] Progress Note Progress Note DATE OF SERVICE: 08/21/18 HISTORY: Patient is a 33 -year-old , dependant, female, who was admitted after pt was brought in by police at per pt's c alled them stating the pt called him and told him she was going to kill herself. When MP's arrived to pt's home they found her in the garage with the car running, CO everywhere, broken glass on the floor everywhere, ceiling fan and detectors pulled out of ju[place] and destroyed on the floor. In the ED pt denied SI stating the car was running b/c she was going somewhere and couldn't find her purse. She denied calling her . 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 She was evasive and laughing during evaluation in the ED. Pt seen in room and refusing to talk to anyone. Per staff pt standing in her closet and won't come out. When I saw her she was being seen by nurse and no longer in her closet but did attempt to return to her closest after it was clear she was not going to talk to anyone. She appears more behavioral and annoyed she's here rather than psychotic. Pt advised she will be locked out of her room if she doesn't refrain from standing in the closet. Pt sat on her bed. Pt is very uncooperative. History gathered from ED records as pt refusing to talk to anyone. VITAL SIGNS: See below. NEW TEST RESULTS: See below. CURRENT MEDICATIONS: See below. MENTAL STATUS EXAMINATION: General Appearance: well groomed, appears stated age, own clothing, isolating in room mostly Build: average Demeanor: withdrawn, guarded, all though more cooperative with interview Eye Contact: fair Activity: average Behavior: uncooperative mostly, withdrawn Speech: limited and non-spontaneous, reg rate/rhythm/volume Mood: irritable, flat, reactive at times Mood "ok" Affect: constricted, flat Thought Process: linear, logical Thought Content (Delusions): paranoid delusions and suspiciousness (per believes being spied on thru electrical outlets, light fixtures, believe people in ju[place]rez and put holes in juárez with dumbbell) Will not discuss what she and her talk about when he visits stating "that's confidential." informs staff though that she voices paranoia, delusions, and psychosis to him and will not discuss with staff. Thought Content (Other): denies si/hi Thought Content (Aggressive): none reported currently but did destroy light fixtures at home with glass all over floor b/c thought was being spied on thru them Perception (Hallucinations): possibly responding internal stimuli Perception (Other): other (unable to assess) Cognition (Impairment of): none reported Cognition(Intelligence Est.): average Oriented: Awake, Alert, oriented x3 Insight: poor Judgment: Poor Psychosis: delusional, paranoid, responding internal stimuli DIAGNOSES: Psychosis unspecified Per Documentation: Hx of Schizophrenia Hx alcohol/opiate use d/o ASSESSMENT:Pt seen in room and and did talk to me, but will only give generalized answers to questions, no specifics even though asked specific question and will not pertain any answer to herself just generalize to people, unit. Appears very paranoid, suspicious, mistrustful, and deceptive. Encouraged to attend groups and the first thing she asked about them was if the confidential and told yes that everything on unit is confidential. Informed that TOO submitted yesterday for hopeful court hearing later this week to proceed with medication. Also advised referral thru court order for transfer to [facility] would be submitted to court today. Encouraged to cooperate with treatment and med compliance though. Her insight and judgement remain very poor. Pt is coming out of her room rarely and is eating little of meals due to paranoia that staff putting things in food (eats most package items like cereal). Encouraged to not isolate in room. Appears paranoid and delusional. Pts in continual communication with staff after pt signed consent for staff to speak with him and states pt endorses delusional, paranoid, psychotic ideation symptoms over phone to him and that she will not discuss with staff. Per believed staff putting stuff in water to make salty and in aquafresh toothpaste to make taste strange. Per last this week "Pt's brought in copies of bizarre nonsensical texts from pts, pictures of the home where to had place objects and paper over outlets b/c she thought cameras were in them, punch holes in the juárez with a dumbbell b/c she though people where talking in the juárez, and took off and destroyed every light ficture in home (bedroom litterly look destroys, fan destroyed on floor) b/c she thought there were cameras in them. Pt brought in pt history of diagnosis of schizophrenia in [place] when admitted. Pt thru out history denied anything wrong with her and very resistant to psychiatric treatment. Pt's father recently due to liver cirrhosis. in documentation indicated history of opiate and alcohol abuse now sober. Did sign consent to speak to yesterday Pt refusing invega 3mg bid for psychosis and will start proceedings for TOO and prison treatment at [facility] today. Plan is to use invega for psychosis followed by invega jeff in future for compliance. Will encourage pt to take meds that she's currently refusing. Pt remains uncooperative mostly. MANAGEMENT PLAN:continue to promote treatment participation and med compliance. Will start proceedings for TOO and prison referral [facility]. Medications: invega 3mg bid TIME SPENT: 30 minutes. Vital Signs Vital Signs Date Time Temp Pulse Resp B/P (MAP) Pulse Ox O2 Delivery O2 Flow Rate FiO2 08/20/18 18:14 99.1 97 16 111/63 (79) Current Medications Current Medications Acetaminophen (Tylenol Tab) 650 mg Q6HP PRN PO HEADACHE or DISCOMFORT; Start 08/08/18 at 19:15 Al Hydrox/Mg Hydrox/Simethicone (Mylanta) 30 ml Q4HP PRN PO HEARTBURN/INDIGESTION; Start 08/08/18 at 19:15 Aripiprazole (AbiLIFY) 5 mg BID PO ; Start 08/14/18 at 09:00; Stop 08/16/18 at 09:53; Status DC Fluoxetine HCl (PROzac) 10 mg DAILY PO ; Start 08/11/18 at 09:00; Stop 08/14/18 at 10:34; Status DC Folic Acid (Folic Acid) 1 mg DAILY PO ; Start 08/12/18 at 09:00 Home Med (Med Rec Complete!) ASDIRECTED XX ; Start 08/08/18 at 19:45; Stop 08/08/18 at 19:48; Status DC Hydroxyzine HCl (Atarax) 25 mg Q6HP PRN PO ANXIETY; Start 08/16/18 at 10:00 Lorazepam (Ativan) 2 mg ASDIRECTED PRN PO SEE PROTOCOL; Start 08/11/18 at 20:15; Stop 08/17/18 at 09:30; Status DC Magnesium Hydroxide (Milk Of Magnesia) 30 ml DAILYPRN PRN PO CONSTIPATION; Start 08/08/18 at 19:15 Multivitamins (Theragram-M) 1 tab DAILY PO ; Start 08/12/18 at 09:00 Non-Formulary Medication ( See Comment Field Below ) SEE COMMENTS SECTION 1T@10 XX ; Start 08/19/18 at 10:00; Stop 08/20/18 at 09:59; Status UNV Non-Formulary Medication ( See Comment Field Below ) SEE LABEL COMMENTS DAILY XX ; Start 08/17/18 at 09:00 Paliperidone (Invega) 3 mg QAM PO ; Start 08/17/18 at 09:00 Paliperidone (Invega) 3 mg QHS PO ; Start 08/16/18 at 21:00 Thiamine HCl (Thiamine HCl) 100 mg BID PO ; Start 08/11/18 at 21:00; Stop 08/14/18 at 09:01; Status DC Trazodone HCl (Desyrel) 50 mg QHSP PRN PO INSOMNIA; Start 08/08/18 at 19:15 Allergies Coded Allergies: No Known Allergies (Unverified , 01/20/17) KONSTANTIN KHAN DO Aug 21, 2018 9:44 am
[2018-08-21 11:52] VITALS: BP 123/79
[2018-08-21] MEDS ORDERED: ONDANSETRON 4 MG TAB (S0181) PO PRN (12:45)
[2018-08-21 18:15] VITALS: BP 117/62
[2018-08-22 06:00] VITALS: BP 108/65
[2018-08-22] MEDS: PALIPERIDONE 3 MG ER TAB (INVEGA) PO SCH ×2 (09:00→21:00)
[2018-08-22] MEDS: FOLIC ACID 1 MG TAB PO SCH (09:00)
[2018-08-22] MEDS: MULTIVITAMINS/MINERALS THERAP 1 TAB PO SCH (09:00)
[2018-08-22] MEDS: **PENDING PPD ENTRY XX SCH (09:00)
--- NOTE | 2018-08-22 10:05 | MHIPNPDOC ---
[facility] Progress Note Progress Note DATE OF SERVICE: 08/22/18 HISTORY: Patient is a 33 -year-old , dependant, female, who was admitted after pt was brought in by police at per pt's c alled them stating the pt called him and told him she was going to kill herself. When MP's arrived to pt's home they found her in the garage with the car running, CO everywhere, broken glass on the floor everywhere, ceiling fan and detectors pulled out of ju[place] and destroyed on the floor. In the ED pt denied SI stating the car was running b/c she was going somewhere and couldn't find her purse. She denied calling her . 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 She was evasive and laughing during evaluation in the ED. Pt seen in room and refusing to talk to anyone. Per staff pt standing in her closet and won't come out. When I saw her she was being seen by nurse and no longer in her closet but did attempt to return to her closest after it was clear she was not going to talk to anyone. She appears more behavioral and annoyed she's here rather than psychotic. Pt advised she will be locked out of her room if she doesn't refrain from standing in the closet. Pt sat on her bed. Pt is very uncooperative. History gathered from ED records as pt refusing to talk to anyone. VITAL SIGNS: See below. NEW TEST RESULTS: See below. CURRENT MEDICATIONS: See below. MENTAL STATUS EXAMINATION: General Appearance: well groomed, appears stated age, own clothing, isolating in room mostly Build: average Demeanor: withdrawn, guarded, all though more cooperative with interview Eye Contact: fair Activity: average Behavior: uncooperative mostly, withdrawn Speech: limited and non-spontaneous, reg rate/rhythm/volume Mood: irritable, flat, reactive at times Mood "ok" Affect: constricted, flat Thought Process: linear, logical Thought Content (Delusions): paranoid delusions and suspiciousness (per believes being spied on thru electrical outlets, light fixtures, believe people in ju[place] and put holes in ju[place]rez with dumbbell) Will not discuss what she and her talk about when he visits stating "that's confidential." informs staff though that she voices paranoia, delusions, and psychosis to him and will not discuss with staff. Thought Content (Other): denies si/hi Thought Content (Aggressive): none reported currently but did destroy light fixtures at home with glass all over floor b/c thought was being spied on thru them Perception (Hallucinations): possibly responding internal stimuli Perception (Other): other (unable to assess) Cognition (Impairment of): none reported Cognition(Intelligence Est.): average Oriented: Awake, Alert, oriented x3 Insight: poor Judgment: Poor Psychosis: delusional, paranoid, responding internal stimuli DIAGNOSES: Psychosis unspecified Per Documentation: Hx of Schizophrenia Hx alcohol/opiate use d/o ASSESSMENT:Pt seen in room and did talk to me, but will only give generalized answers to questions, no specifics even though asked specific questions again and will not pertain any answer to herself just generalize to people, unit. Appears very paranoid, suspicious, mistrustful, and deceptive. Encouraged to attend groups again and says "maybe." Informed that TOO submitted yesterday for hopeful court hearing later this week to proceed with medication. Also advised referral thru court order for [place] [facility] [place] be submitted to court today. Encouraged to cooperate with treatment and med compliance though. Her insight and judgement remain very poor. Pt is coming out of her room rarely and is eating little of meals due to paranoia that staff putting things in food (eats most package items like cereal). Encouraged to not isolate in room. Appears paranoid and delusional. Pts in continual communication with staff after pt signed consent for staff to speak with him and states pt endorses delusional, paranoid, psychotic ideation symptoms over phone to him and that she will not discuss with staff. Per believed staff putting stuff in water to make salty and in aquafresh toothpaste to make taste strange. Per last this week "Pt's brought in copies of bizarre nonsensical texts from pts, pictures of the home where to had place objects and paper over outlets b/c she thought cameras were in them, punch holes in the ju[place]rez with a dumbbell b/c she though people where talking in the juárez, and took off and destroyed every light fixture in home (bedroom litterly look destroys, fan destroyed on floor) b/c she thought there were cameras in them. Per pt's , their son also fears a man is after him and that he's being spied on at home (by proxy paranoid delusion most likely) and pt has also looked their 8y/o son out of the house in the cold due to psychosis. CPS report filed and now has sole custody of their son. Pt's brought in pt history of diagnosis of schizophrenia in [place] when admitted. Pt thru out history denied anything wrong with her and very resistant to psychiatric treatment. Pt's father recently due to liver cirrhosis. in documentation indicated history of opiate and alcohol abuse now sober. Did sign consent to speak to yesterday Pt refusing invega 3mg bid for psychosis and will start proceedings for TOO and usp treatment [place] [facility] [place]. Plan is to use invega for psychosis followed by invega sustenna in future for compliance. Will encourage pt to take meds that she's currently refusing. Pt remains uncooperative mostly. MANAGEMENT PLAN:continue to promote treatment participation and med compliance. Will start proceedings for TOO and usp referral [facility]. Medications: invega 3mg bid TIME SPENT: 30 minutes. Vital Signs Vital Signs Date Time Temp Pulse Resp B/P (MAP) Pulse Ox O2 Delivery O2 Flow Rate FiO2 08/22/18 06:00 98.6 110 14 108/65 (79) Current Medications Current Medications Acetaminophen (Tylenol Tab) 650 mg Q6HP PRN PO HEADACHE or DISCOMFORT; Start 08/08/18 at 19:15 Al Hydrox/Mg Hydrox/Simethicone (Mylanta) 30 ml Q4HP PRN PO HEARTBURN/INDIGESTI ON; Start 08/08/18 at 19:15 Aripiprazole (AbiLIFY) 5 mg BID PO ; Start 08/14/18 at 09:00; Stop 08/16/18 at 09:53; Status DC Fluoxetine HCl (PROzac) 10 mg DAILY PO ; Start 08/11/18 at 09:00; Stop 08/14/18 at 10:34; Status DC Folic Acid (Folic Acid) 1 mg DAILY PO ; Start 08/12/18 at 09:00 Home Med (Med Rec Complete!) ASDIRECTED XX ; Start 08/08/18 at 19:45; Stop 08/08/18 at 19:48; Status DC Hydroxyzine HCl (Atarax) 25 mg Q6HP PRN PO ANXIETY; Start 08/16/18 at 10:00 Lorazepam (Ativan) 2 mg ASDIRECTED PRN PO SEE PROTOCOL; Start 08/11/18 at 20:15; Stop 08/17/18 at 09:30; Status DC Magnesium Hydroxide (Milk Of Magnesia) 30 ml DAILYPRN PRN PO CONSTIPATION; Start 08/08/18 at 19:15 Multivitamins (Theragram-M) 1 tab DAILY PO ; Start 08/12/18 at 09:00 Non-Formulary Medication ( See Comment Field Below ) SEE COMMENTS SECTION 1T@10 XX ; Start 08/19/18 at 10:00; Stop 08/20/18 at 09:59; Status UNV Non-Formulary Medication ( See Comment Field Below ) SEE LABEL COMMENTS DAILY XX ; Start 08/17/18 at 09:00 Ondansetron HCl (Zofran) 4 mg Q4HP PRN PO NAUSEA OR VOMITING; Start 08/21/18 at 12:45 Paliperidone (Invega) 3 mg QAM PO ; Start 08/17/18 at 09:00 Paliperidone (Invega) 3 mg QHS PO ; Start 08/16/18 at 21:00 Thiamine HCl (Thiamine HCl) 100 mg BID PO ; Start 08/11/18 at 21:00; Stop 08/14/18 at 09:01; Status DC Trazodone HCl (Desyrel) 50 mg QHSP PRN PO INSOMNIA; Start 08/08/18 at 19:15 Allergies Coded Allergies: No Known Allergies (Unverified , 01/20/17) KONSTANTIN KHAN DO Aug 22, 2018 10:05 am
[2018-08-22 18:47] VITALS: BP 111/62
[2018-08-23 06:22] VITALS: BP 111/56
[2018-08-23] MEDS: MULTIVITAMINS/MINERALS THERAP 1 TAB PO SCH (09:00)
[2018-08-23] MEDS: FOLIC ACID 1 MG TAB PO SCH (09:00)
[2018-08-23] MEDS: PALIPERIDONE 3 MG ER TAB (INVEGA) PO SCH ×2 (09:00→20:34)
[2018-08-23] MEDS: **PENDING PPD ENTRY XX SCH (09:00)
--- NOTE | 2018-08-23 09:05 | MHIPNPDOC ---
[facility] Progress Note Progress Note DATE OF SERVICE: 08/23/18 HISTORY: Patient is a 33 -year-old , dependant, female, who was admitted after pt was brought in by police at per pt's c alled them stating the pt called him and told him she was going to kill herself. When MP's arrived to pt's home they found her in the garage with the car running, CO everywhere, broken glass on the floor everywhere, ceiling fan and detectors pulled out of ju[place]rez and destroyed on the floor. In the ED pt denied SI stating the car was running b/c she was going somewhere and couldn't find her purse. She denied calling her . 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 She was evasive and laughing during evaluation in the ED. Pt seen in room and refusing to talk to anyone. Per staff pt standing in her closet and won't come out. When I saw her she was being seen by nurse and no longer in her closet but did attempt to return to her closest after it was clear she was not going to talk to anyone. She appears more behavioral and annoyed she's here rather than psychotic. Pt advised she will be locked out of her room if she doesn't refrain from standing in the closet. Pt sat on her bed. Pt is very uncooperative. History gathered from ED records as pt refusing to talk to anyone. VITAL SIGNS: See below. NEW TEST RESULTS: See below. CURRENT MEDICATIONS: See below. MENTAL STATUS EXAMINATION: General Appearance: well groomed, appears stated age, own clothing, isolating in room mostly Build: average Demeanor: withdrawn, guarded, all though more cooperative with interview Eye Contact: fair Activity: average Behavior: uncooperative mostly, withdrawn Speech: limited and non-spontaneous, reg rate/rhythm/volume Mood: irritable, flat, reactive at times Mood "ok" Affect: constricted, flat Thought Process: linear, logical Thought Content (Delusions): paranoid delusions and suspiciousness (per believes being spied on thru electrical outlets, light fixtures, believe people in ju[place] and put holes in ju[place]rez with dumbbell) Will not discuss what she and her talk about when he visits stating "that's confidential." informs staff though that she voices paranoia, delusions, and psychosis to him and will not discuss with staff. Thought Content (Other): denies si/hi Thought Content (Aggressive): none reported currently but did destroy light fixtures at home with glass all over floor b/c thought was being spied on thru them Perception (Hallucinations): possibly responding internal stimuli Perception (Other): other (unable to assess) Cognition (Impairment of): none reported Cognition(Intelligence Est.): average Oriented: Awake, Alert, oriented x3 Insight: poor Judgment: Poor Psychosis: delusional, paranoid, responding internal stimuli DIAGNOSES: Psychosis unspecified Per Documentation: Hx of Schizophrenia Hx alcohol/opiate use d/o ASSESSMENT:No change from yesterday. Pt seen in room and did talk to me, but will only give generalized answers to questions, no specifics even though asked specific questions again and will not pertain any answer to herself just generalize to people, unit. Did get books from group room to read but not attending groups. States she's eating ("cereal, a banana" this morning "tossed salad" last night). Appears very paranoid, suspicious, mistrustful, and deceptive. Encouraged to attend groups again and says "maybe." Informed that TOO submitted yesterday for hopeful court hearing later this week to proceed with medication. Also advised referral thru court order for transfer [place] [facility] [place] today. Encouraged to cooperate with treatment and med compliance though. Her insight and judgement remain very poor. Pt is coming out of her room rarely and is eating little of meals due to paranoia that staff putting things in food (eats most package items like cereal). Encouraged to not isolate in room. Appears paranoid and delusional. Pts in continual communication with staff after pt signed consent for staff to speak with him and states pt endorses delusional, paranoid, psychotic ideation symptoms over phone to him and that she will not discuss with staff. Per believed staff putting stuff in water to make salty and in aquafresh toothpaste to make taste strange. Per last this week "Pt's brought in copies of bizarre nonsensical texts from pts, pictures of the home where to had place objects and paper over outlets b/c she thought cameras were in them, punch holes in the juárez with a dumbbell b/c she though people where talking in the ju[place]rez, and took off and destroyed every light fixture in home (bedroom litterly look destroys, fan destroyed on floor) b/c she thought there were cameras in them. Per pt's , their son also fears a man is after him and that he's being spied on at home (by proxy paranoid delusion most likely) and pt has also looked their 8y/o son out of the house in the cold due to psychosis. CPS report filed and now has sole custody of their son. Pt's brought in pt history of diagnosis of schizophrenia in [place] when admitted. Pt thru out history denied anything wrong with her and very resistant to psychiatric treatment. Pt's father recently due to liver cirrhosis. in documentation indicated history of opiate and alcohol abuse now sober. Did sign consent to speak to yesterday Pt refusing invega 3mg bid for psychosis and will start proceedings for TOO and care home treatment [place] [facility] [place]. Plan is to use invega for psychosis followed by corbin aguilar in future for compliance. Will encourage pt to take meds that she's currently refusing. Pt remains uncooperative mostly. MANAGEMENT PLAN:continue to promote treatment participation and med compliance. Will start proceedings for TOO and care home referral [facility]. Medications: invega 3mg bid TIME SPENT: 30 minutes. Vital Signs Vital Signs Date Time Temp Pulse Resp B/P (MAP) Pulse Ox O2 Delivery O2 Flow Rate FiO2 08/23/18 06:22 98.5 91 18 111/56 (74) Current Medications Current Medications Acetaminophen (Tylenol Tab) 650 mg Q6HP PRN PO HEADACHE or DISCOMFORT; Start 08/08/18 at 19:15 Al Hydrox/Mg Hydrox/Simethicone (Mylanta) 30 ml Q4HP PRN PO HEARTBURN/INDIGESTION; Start 08/08/18 at 19:15 Aripiprazole (AbiLIFY) 5 mg BID PO ; Start 08/14/18 at 09:00; Stop 08/16/18 at 09:53; Status DC Fluoxetine HCl (PROzac) 10 mg DAILY PO ; Start 08/11/18 at 09:00; Stop 08/14/18 at 10:34; Status DC Folic Acid (Folic Acid) 1 mg DAILY PO ; Start 08/12/18 at 09:00 Home Med (Med Rec Complete!) ASDIRECTED XX ; Start 08/08/18 at 19:45; Stop 08/08/18 at 19:48; Status DC Hydroxyzine HCl (Atarax) 25 mg Q6HP PRN PO ANXIETY; Start 08/16/18 at 10:00 Lorazepam (Ativan) 2 mg ASDIRECTED PRN PO SEE PROTOCOL; Start 08/11/18 at 20:15; Stop 08/17/18 at 09:30; Status DC Magnesium Hydroxide (Milk Of Magnesia) 30 ml DAILYPRN PRN PO CONSTIPATION; Start 08/08/18 at 19:15 Multivitamins (Theragram-M) 1 tab DAILY PO ; Start 08/12/18 at 09:00 Non-Formulary Medication ( See Comment Field Below ) SEE COMMENTS SECTION 1T@10 XX ; Start 08/19/18 at 10:00; Stop 08/20/18 at 09:59; Status UNV Non-Formulary Medication ( See Comment Field Below ) SEE LABEL COMMENTS DAILY XX ; Start 08/17/18 at 09:00 Ondansetron HCl (Zofran) 4 mg Q4HP PRN PO NAUSEA OR VOMITING; Start 08/21/18 at 12:45 Paliperidone (Invega) 3 mg QAM PO ; Start 08/17/18 at 09:00 Paliperidone (Invega) 3 mg QHS PO ; Start 08/16/18 at 21:00 Thiamine HCl (Thiamine HCl) 100 mg BID PO ; Start 08/11/18 at 21:00; Stop 08/14/18 at 09:01; Status DC Trazodone HCl (Desyrel) 50 mg QHSP PRN PO INSOMNIA; Start 08/08/18 at 19:15 Allergies Coded Allergies: No Known Allergies (Unverified , 01/20/17) KONSTANTIN KHAN DO Aug 23, 2018 9:05 am
[2018-08-24 06:07] VITALS: BP 102/69
[2018-08-24] MEDS: FOLIC ACID 1 MG TAB PO SCH (09:00)
[2018-08-24] MEDS: PALIPERIDONE 3 MG ER TAB (INVEGA) PO SCH ×2 (09:00→21:46)
[2018-08-24] MEDS: **PENDING PPD ENTRY XX SCH (09:00)
[2018-08-24] MEDS: MULTIVITAMINS/MINERALS THERAP 1 TAB PO SCH (09:00)
--- NOTE | 2018-08-24 10:59 | MHIPNPDOC ---
[facility] Progress Note Progress Note DATE OF SERVICE: 08/24/18 HISTORY: Patient is a 33 -year-old , dependant, female, who was admitted after pt was brought in by police [place] pt's called them stating the pt called him and told him she was going to kill herself. When MP's arrived to pt's home they found her in the garage with the car running, CO everywhere, broken glass on the floor everywhere, ceiling fan and detectors pulled out of ju[place] and destroyed on the floor. In the ED pt denied SI stating the car was running b/c she was going somewhere and couldn't f ind her purse. She denied calling her . 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 She was evasive and laughing during evaluation in the ED. Pt seen in room and refusing to talk to anyone. Per staff pt standing in her closet and won't come out. When I saw her she was being seen by nurse and no longer in her closet but did attempt to return to her closest after it was clear she was not going to talk to anyone. She appears more behavioral and annoyed she's here rather than psychotic. Pt advised she will be locked out of her room if she doesn't refrain from standing in the closet. Pt sat on her bed. Pt is very uncooperative. History gathered from ED records as pt refusing to talk to anyone. VITAL SIGNS: See below. NEW TEST RESULTS: See below. CURRENT MEDICATIONS: See below. MENTAL STATUS EXAMINATION: General Appearance: well groomed, appears stated age, own clothing, isolating in room mostly Build: average Demeanor: withdrawn, guarded, all though more cooperative with interview Eye Contact: fair Activity: average Behavior: uncooperative mostly, withdrawn Speech: limited and non-spontaneous, reg rate/rhythm/volume Mood: irritable, flat, reactive at times Mood "ok" Affect: constricted, flat Thought Process: linear, logical Thought Content (Delusions): paranoid delusions and suspiciousness (per believes being spied on thru electrical outlets, light fixtures, believe people in ju[place]rez and put holes in juárez with dumbbell) Will not discuss what she and her talk about when he visits stating "that's confidential." informs staff though that she voices paranoia, delusions, and psychosis to him and will not discuss with staff. Thought Content (Other): denies si/hi Thought Content (Aggressive): none reported currently but did destroy light fixtures at home with glass all over floor b/c thought was being spied on thru them Perception (Hallucinations): possibly responding internal stimuli Perception (Other): other (unable to assess) Cognition (Impairment of): none reported Cognition(Intelligence Est.): average Oriented: Awake, Alert, oriented x3 Insight: poor Judgment: Poor Psychosis: delusional, paranoid, responding internal stimuli DIAGNOSES: Psychosis unspecified R/o paranoid Schizophrenia Hx of bipolar 1 d/o with ori and psychosis Hx alcohol/opiate use d/o ASSESSMENT:No change from yesterday. Pt seen in room and did talk to me, but will only give generalized answers to questions, no specifics even though asked specific questions again and will not pertain any answer to herself just yamilet fernando to people, unit. States she walked in the milieu when she got bored in her room but never saw her and stated to this "check the cameras." Per nursing, pt only in milieu to get meal tray as she has been doing for the past week and not in milieu any other time. States she's eating ("cereal, a banana" this morning "tossed salad" last night). Appears very paranoid, suspicious, mistrustful, and deceptive. Encouraged to attend groups again and says "maybe." Informed that TOO submitted yesterday for hopeful court hearing later this week to proceed with medication. Also advised referral thru court order for transfer to [facility] would be submitted to court today. Encouraged to cooperate with treatment and med compliance though. Her insight and judgement remain very poor. Pt is coming out of her room rarely and is eating little of meals due to paranoia that staff putting things in food (eats most package items like cereal). Encouraged to not isolate in room. Appears paranoid and delusional. Pts in continual communication with staff after pt signed consent for staff to speak with him and states pt endorses delusional, paranoid, psychotic ideation symptoms over phone to him and that she will not discuss with staff. Per believed staff putting stuff in water to make salty and in aquafresh toothpaste to make taste strange. Per last this week "Pt's brought in copies of bizarre nonsensical texts from pts, pictures of the home where to had place objects and paper over outlets b/c she thought cameras were in them, punch holes in the juárez with a dumbbell b/c she though people where talking in the juárez, and took off and destroyed every light fixture in home (bedroom litterly look destroys, fan destroyed on floor) b/c she thought there were cameras in them. Per pt's , their son also fears a man is after him and that he's being spied on at home (by proxy paranoid delusion most likely) and pt has also looked their 8y/o son out of the house in the cold due to psychosis. CPS report filed and now has sole custody of their son. Pt's brought in pt history of diagnosis of schizophrenia in [place] when admitted. Pt thru out history denied anything wrong with her and very resistant to psychiatric treatm ent. Pt's father recently due to liver cirrhosis. in documentation indicated history of opiate and alcohol abuse now sober. Did sign consent to speak to yesterday Pt refusing invega 3mg bid for psychosis and will start proceedings for TOO and chcf treatment at [facility] today. Plan is to use invega for psychosis followed by corbin aguilar in future for compliance. Will encourage pt to take meds that she's currently refusing. Pt remains uncooperative mostly. MANAGEMENT PLAN:continue to promote treatment participation and med compliance. Court regarding TOO today. Medications: invega 3mg bid TIME SPENT: 30 minutes. Vital Signs Vital Signs Date Time Temp Pulse Resp B/P (MAP) Pulse Ox O2 Delivery O2 Flow Rate FiO2 08/24/18 06:07 99.5 110 18 102/69 (80) Current Medications Current Medications Acetaminophen (Tylenol Tab) 650 mg Q6HP PRN PO HEADACHE or DISCOMFORT; Start 08/08/18 at 19:15 Al Hydrox/Mg Hydrox/Simethicone (Mylanta) 30 ml Q4HP PRN PO HEARTBURN/INDIGESTION; Start 08/08/18 at 19:15 Aripiprazole (AbiLIFY) 5 mg BID PO ; Start 08/14/18 at 09:00; Stop 08/16/18 at 09:53; Status DC Fluoxetine HCl (PROzac) 10 mg DAILY PO ; Start 08/11/18 at 09:00; Stop 08/14/18 at 10:34; Status DC Folic Acid (Folic Acid) 1 mg DAILY PO ; Start 08/12/18 at 09:00 Home Med (Med Rec Complete!) ASDIRECTED XX ; Start 08/08/18 at 19:45; Stop 08/08/18 at 19:48; Status DC Hydroxyzine HCl (Atarax) 25 mg Q6HP PRN PO ANXIETY; Start 08/16/18 at 10:00 Lorazepam (Ativan) 2 mg ASDIRECTED PRN PO SEE PROTOCOL; Start 08/11/18 at 20: 15; Stop 08/17/18 at 09:30; Status DC Magnesium Hydroxide (Milk Of Magnesia) 30 ml DAILYPRN PRN PO CONSTIPATION; Start 08/08/18 at 19:15 Multivitamins (Theragram-M) 1 tab DAILY PO ; Start 08/12/18 at 09:00 Non-Formulary Medication ( See Comment Field Below ) SEE COMMENTS SECTION 1T@10 XX ; Start 08/19/18 at 10:00; Stop 08/20/18 at 09:59; Status UNV Non-Formulary Medication ( See Comment Field Below ) SEE LABEL COMMENTS DAILY XX ; Start 08/17/18 at 09:00 Ondansetron HCl (Zofran) 4 mg Q4HP PRN PO NAUSEA OR VOMITING; Start 08/21/18 at 12:45 Paliperidone (Invega) 3 mg QAM PO ; Start 08/17/18 at 09:00 Paliperidone (Invega) 3 mg QHS PO ; Start 08/16/18 at 21:00 Thiamine HCl (Thiamine HCl) 100 mg BID PO ; Start 08/11/18 at 21:00; Stop 08/14/18 at 09:01; Status DC Trazodone HCl (Desyrel) 50 mg QHSP PRN PO INSOMNIA; Start 08/08/18 at 19:15 Allergies Coded Allergies: No Known Allergies (Unverified , 01/20/17) KONSTANTIN KHAN DO Aug 24, 2018 10:59
[2018-08-24] MEDS ORDERED: diphenhydrAMINE INJ 50MG/ML VIAL (J1200) IM PRN (16:00)
[2018-08-24] MEDS ORDERED: diphenhydrAMINE 25 MG CAP PO PRN (16:00)
[2018-08-24] MEDS ORDERED: OLANZapine INTRAMUSCULAR 10 MG VIAL (S0166) IM PRN (21:00)
[2018-08-25 06:14] VITALS: BP 103/59
[2018-08-25] MEDS: FOLIC ACID 1 MG TAB PO SCH (09:00)
[2018-08-25] MEDS: MULTIVITAMINS/MINERALS THERAP 1 TAB PO SCH (09:00)
[2018-08-25] MEDS: PALIPERIDONE 3 MG ER TAB (INVEGA) PO SCH ×2 (09:04→21:30)
[2018-08-25] MEDS ORDERED: TUBERCULIN PPD 5 UNITS/0.1 ML ID ONE (10:00)
[2018-08-25 18:14] VITALS: BP 110/64
[2018-08-26 06:15] VITALS: BP 100/59
[2018-08-26] MEDS: MULTIVITAMINS/MINERALS THERAP 1 TAB PO SCH (10:33)
[2018-08-26] MEDS: FOLIC ACID 1 MG TAB PO SCH (10:33)
[2018-08-26] MEDS: PALIPERIDONE 3 MG ER TAB (INVEGA) PO SCH ×2 (10:33→21:22)
[2018-08-26 18:15] VITALS: BP 98/60
[2018-08-27 06:00] VITALS: BP 98/56
[2018-08-27] MEDS: PALIPERIDONE 3 MG ER TAB (INVEGA) PO SCH ×2 (08:31→21:34)
[2018-08-27] MEDS: MULTIVITAMINS/MINERALS THERAP 1 TAB PO SCH (08:32)
[2018-08-27] MEDS: FOLIC ACID 1 MG TAB PO SCH (08:32)
[2018-08-27] MEDS ORDERED: PPD DOCUMENTATION ENTRY MISC XX ONE (10:00)
--- NOTE | 2018-08-27 12:24 | MHIPNPDOC ---
[facility] Progress Note Progress Note DATE OF SERVICE: 08/27/18 HISTORY: Patient is a 33 -year-old , dependant, female, who was admitted after pt was brought in by police at [facility] pt's called them stating the pt called him and told him she was going to kill herself. When MP's arrived to pt's home they found her in the garage with the car running, CO everywhere, broken glass on the floor everywhere, ceiling fan and detectors pulled out of ju[place] and destroyed on the floor. In the ED pt denied SI stating the car was running b/c she was going somewhere and couldn't f ind her purse. She denied calling her . 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 She was evasive and laughing during evaluation in the ED. Pt seen in room and refusing to talk to anyone. Per staff pt standing in her closet and won't come out. When I saw her she was being seen by nurse and no longer in her closet but did attempt to return to her closest after it was clear she was not going to talk to anyone. She appears more behavioral and annoyed she's here rather than psychotic. Pt advised she will be locked out of her room if she doesn't refrain from standing in the closet. Pt sat on her bed. Pt is very uncooperative. History gathered from ED records as pt refusing to talk to anyone. VITAL SIGNS: See below. NEW TEST RESULTS: See below. CURRENT MEDICATIONS: See below. MENTAL STATUS EXAMINATION: General Appearance: well groomed, appears stated age, own clothing, isolating in room mostly Build: average Demeanor: less guarded, more cooperative with interview Eye Contact: fair Activity: average Behavior: cooperative although still will not talk about events surrounding admission and why she was behaving very bizarrely and paranoid at home Speech: spontaneous, reg rate/rhythm/volume Mood: less flat and blunted Mood "ok" Affect: less constricted, flat Thought Process: linear, logical Thought Content (Delusions): paranoid delusions and suspiciousness (per believes being spied on thru electrical outlets, light fixtures, believe people in ju[place]rez and put holes in juárez with dumbbell) Will not discuss what she and her talk about when he visits stating "that's confidential." informs staff though that she voices paranoia, delusions, and psychosis to him and will not discuss with staff. Thought Content (Other): denies si/hi Thought Content (Aggressive): none reported currently but did destroy light fixtures at home with glass all over floor b/c thought was being spied on thru them Perception (Hallucinations): possibly responding internal stimuli Perception (Other): other (unable to assess) Cognition (Impairment of): none reported Cognition(Intelligence Est.): average Oriented: Awake, Alert, oriented x3 Insight: poor Judgment: Poor Psychosis: delusional, paranoid, responding internal stimuli DIAGNOSES: Psychosis unspecified R/o paranoid Schizophrenia Hx of bipolar 1 d/o with ori and psychosis Hx alcohol/opiate use d/o ASSESSMENT:TOO granted on Monday in Court and pt now compliant with invega bid. No change from yesterday. Pt seen in office and talking more opennly and spontaneously. is now starting to engage herself in treatment although has yet to attend a group due to paranoia although paranoia appears less with medication. Endorses some fatigue with medication and advised should improve with increased tolerance and with im invega sustenna. Answers questions in less generalized statements and does ask questions. Is eating better. Appears less paranoid, suspicious, mistrustful, and deceptive. Her insight and judgement remain poor. Pt is coming out of her room rarely. Encouraged to not isolate in room. Pts in continual communication with staff after pt signed consent for staff to speak with him and states pt endorses delusional, paranoid, psychotic ideation symptoms over phone to him and that she will not discuss with staff. Per believed staff putting stuff in water to make salty and in aquafresh toothpaste to make taste strange. Per last this week "Pt's brought in copies of bizarre nonsensical texts from pts, pictures of the home where to had place objects and paper over outlets b/c she thought cameras were in them, punch holes in the juárez with a dumbbell b/c she though people where talking in the juárez, and took off and destroyed every light fixture in home (bedroom litterly look destroys, fan destroyed on floor) b/c she thought there were cameras in them. Per pt's , their son also fears a man is after him and that he's being spied on at home (by proxy paranoid delusion most likely) and pt has also looked their 8y/o son out of the house in the cold due to psychosis. CPS report filed and now has sole custody of their son. Pt's brought in pt history of diagnosis of schizophrenia in [place] when admitted. Pt thru out history denied anything wrong with her and very resistant to psychiatric treatment. Pt's father recently due to liver cirrhosis. in documentation indicated history of opiate and alcohol abuse now sober. Did sign consent to speak to yesterday Pt refusing invega 3mg bid for psychosis and will start proceedings for TOO and fpc treatment at [facility] today. Plan is to use invega for psychosis followed by invega jeff in future for compliance. Will encourage pt to take meds that she's currently refusing. Pt remains uncooperative mostly. MANAGEMENT PLAN:continue to promote treatment participation and med compliance. Court regarding TOO today. Medications: invega 3mg bid TIME SPENT: 30 minutes. Vital Signs Vital Signs Date Time Temp Pulse Resp B/P (MAP) Pulse Ox O2 Delivery O2 Flow Rate FiO2 08/27/18 06:00 97.9 92 16 98/56 (70) 100 08/26/18 10:02 Room Air Current Medications Current Medications Acetaminophen (Tylenol Tab) 650 mg Q6HP PRN PO HEADACHE or DISCOMFORT; Start 08/08/18 at 19:15 Al Hydrox/Mg Hydrox/Simethicone (Mylanta) 30 ml Q4HP PRN PO HEARTBURN/INDIGESTION; Start 08/08/18 at 19:15 Aripiprazole (AbiLIFY) 5 mg BID PO ; Start 08/14/18 at 09:00; Stop 08/16/18 at 09:53; Status DC Diphenhydramine HCl (Benadryl) 25 mg Q4HP PRN IM ALLERGY; Start 08/24/18 at 16:0 0 Diphenhydramine HCl (Benadryl) 25 mg Q6HP PRN PO ALLERGY; Start 08/24/18 at 16:00 Fluoxetine HCl (PROzac) 10 mg DAILY PO ; Start 08/11/18 at 09:00; Stop 08/14/18 at 10:34; Status DC Folic Acid (Folic Acid) 1 mg DAILY PO ; Start 08/12/18 at 09:00 Home Med (Med Rec Complete!) ASDIRECTED XX ; Start 08/08/18 at 19:45; Stop 08/08/18 at 19:48; Status DC Hydroxyzine HCl (Atarax) 25 mg Q6HP PRN PO ANXIETY; Start 08/16/18 at 10:00 Lorazepam (Ativan) 2 mg ASDIRECTED PRN PO SEE PROTOCOL; Start 08/11/18 at 20:15 ; Stop 08/17/18 at 09:30; Status DC Magnesium Hydroxide (Milk Of Magnesia) 30 ml DAILYPRN PRN PO CONSTIPATION; Start 08/08/18 at 19:15 Multivitamins (Theragram-M) 1 tab DAILY PO ; Start 08/12/18 at 09:00 Non-Formulary Medication ( See Comment Field Below ) SEE COMMENTS SECTION 1T@10 XX ; Start 08/19/18 at 10:00; Stop 08/20/18 at 09:59; Status UNV Non-Formulary Medication ( See Comment Field Below ) SEE LABEL COMMENTS DAILY XX ; Start 08/17/18 at 09:00; Stop 08/25/18 at 09:14; Status DC Olanzapine (Zyprexa Intramuscular) 5 mg BID PRN IM IF PT REFUSES INVEGA; Start 08/24/18 at 21:00 Ondansetron HCl (Zofran) 4 mg Q4HP PRN PO NAUSEA OR VOMITING; Start 08/21/18 at 12:45 Paliperidone (Invega) 3 mg QAM PO Last administered on 08/27/18at 08:31; Start 08/17/18 at 09:00 Paliperidone (Invega) 3 mg QHS PO Last administered on 08/26/18at 21:22; Start 08/16/18 at 21:00 Thiamine HCl (Thiamine HCl) 100 mg BID PO ; Start 08/11/18 at 21:00; Stop 08/14/18 at 09:01; Status DC Trazodone HCl (Desyrel) 50 mg QHSP PRN PO INSOMNIA; Start 08/08/18 at 19:15 Allergies Coded Allergies: No Known Allergies (Unverified , 01/20/17) KONSTANTIN KHAN DO Aug 27, 2018 12:24 pm
[2018-08-27 18:00] VITALS: BP 104/65
[2018-08-28 06:32] VITALS: BP 99/59
[2018-08-28] MEDS: FOLIC ACID 1 MG TAB PO SCH (08:31)
[2018-08-28] MEDS: PALIPERIDONE 3 MG ER TAB (INVEGA) PO SCH (08:31)
[2018-08-28] MEDS: MULTIVITAMINS/MINERALS THERAP 1 TAB PO SCH (08:31)
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
[2018-08-28 18:19] VITALS: BP 116/66
[2018-08-28] MEDS: PALIPERIDONE 6 MG ER TAB (INVEGA) PO SCH (21:19)
[2018-08-29 06:12] VITALS: BP 121/61
[2018-08-29] MEDS: FOLIC ACID 1 MG TAB PO SCH (09:00)
[2018-08-29] MEDS: MULTIVITAMINS/MINERALS THERAP 1 TAB PO SCH (09:00)
--- NOTE | 2018-08-29 12:52 | MHIPNPDOC ---
[facility] Progress Note Progress Note DATE OF SERVICE: 08/29/18 HISTORY: Patient is a 33 -year-old , dependant, female, who was admitted after pt was brought in by police at per pt's called them stating the pt called him and told him she was going to kill herself. When MP's arrived to pt's home they found her in the garage with the car running, CO everywhere, broken glass on the floor everywhere, ceiling fan and detectors pulled out of [place] and destroyed on the floor. In the ED pt denied SI stating the car was running b/c she was going somewhere and couldn't f ind her purse. She denied calling her . 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 She was evasive and laughing during evaluation in the ED. Pt seen in room and refusing to talk to anyone. Per staff pt standing in her closet and won't come out. When I saw her she was being seen by nurse and no longer in her closet but did attempt to return to her closest after it was clear she was not going to talk to anyone. She appears more behavioral and annoyed she's here rather than psychotic. Pt advised she will be locked out of her room if she doesn't refrain from standing in the closet. Pt sat on her bed. Pt is very uncooperative. History gathered from ED records as pt refusing to talk to anyone. VITAL SIGNS: See below. NEW TEST RESULTS: See below. CURRENT MEDICATIONS: See below. MENTAL STATUS EXAMINATION: General Appearance: well groomed, appears stated age, own clothing Build: average Demeanor: less guarded, more cooperative with interview Eye Contact: fair Activity: average Behavior: cooperative and more willing to discuss symptoms Speech: spontaneous, reg rate/rhythm/volume Mood: less flat and blunted Mood "ok" Affect: less constricted, flat Thought Process: linear, logical Thought Content (Delusions): improving paranoid delusions and suspiciousness (per believes being spied on thru electrical outlets, light fixtures, believe people in [place] and put holes in [place] with dumbbell) informs staff though that she voices paranoia, delusions, and psychosis to him and will not discuss with staff. Thought Content (Other): denies si/hi Thought Content (Aggressive): none reported currently but did destroy light fixtures at home with glass all over floor b/c thought was being spied on thru them per Perception (Hallucinations): possibly responding internal stimuli Perception (Other): other (unable to assess) Cognition (Impairment of): none reported Cognition(Intelligence Est.): average Oriented: Awake, Alert, oriented x3 Insight: improving Judgment: improving Psychosis: improving delusional, paranoid, responding internal stimuli DIAGNOSES: Psychosis unspecified R/o paranoid Schizophrenia vs schizoaffective d/o r/o OCD Hx of bipolar 1 d/o with berna and psychosis Hx alcohol/opiate use d/o ASSESSMENT:TOO granted on Monday in Court and pt now compliant with invega bid. Pt seen and endorsing less fatigue with invega only at night and states after taking invega 6mg at night felt more "clear headed" but not tired, but slept well until 3 am so now tired. States did attend groups yesterday but had to leave one due to anixety/panic. Discussed therapy options (exposure) to aid anxiety, OCD, social anxiety. Asked pt about history from [place] of Berna with psychosis and states she's always been an "awkward" person, maybe bizarre to others and has periods of moods that are up or down. Discussed difference between bipolar d/o with psychosis and schizoaffective d/o with patient with treatment being the same (invega approved for) and seems to lean more toward schizoaffective d/o as again stated "I've always been awkward to others." Advised recommend giving invega sustenna 234mg im today with 156mg on Monday to improve symptoms and side effects. It is in TOO with court order. Pt anxious about shot but encouraged it will help. Pt much more open to discuss symptoms and appears more open to treatment as feels invega is helpful. She is tolerating it well. Insight is improving it appears. Is attending groups finally and states helpful. Is eating better. Appears less paranoid, suspicious, mistrustful, and deceptive. Her insight and judgement remain poor although showing some improvement the more she opens up with myself and staff. States she would like atarax 25mg q6hr prn anxiety to help her. MANAGEMENT PLAN:invega sustenna 234mg im today then 156mg Monday. Provide vistaril 25mg q6hr prn anxiety. Medications: invega 6mg qhs vistaril 25mg q6hr prn anxiety TIME SPENT: 30 minutes. Vital Signs Vital Signs Date Time Temp Pulse Resp B/P (MAP) Pulse Ox O2 Delivery O2 Flow Rate FiO2 08/29/18 08:23 Room Air 08/29/18 06:12 97.5 95 18 121/61 (81) 08/27/18 06:00 100 Current Medications Current Medications Acetaminophen (Tylenol Tab) 650 mg Q6HP PRN PO HEADACHE or DISCOMFORT; Start 08/08/18 at 19:15 Al Hydrox/Mg Hydrox/Simethicone (Mylanta) 30 ml Q4HP PRN PO HEARTBURN/INDIGESTION; Start 08/08/18 at 19:15 Aripiprazole (AbiLIFY) 5 mg BID PO ; Start 08/14/18 at 09:00; Stop 08/16/18 at 09:53; Status DC Diphenhydramine HCl (Benadryl) 25 mg Q4HP PRN IM ALLERGY; Start 08/24/18 at 16:00 Diphenhydramine HCl (Benadryl) 25 mg Q6HP PRN PO ALLERGY; Start 08/24/18 at 16:00 Fluoxetine HCl (PROzac) 10 mg DAILY PO ; Start 08/11/18 at 09:00; Stop 08/14/18 at 10:34; Status DC Folic Acid (Folic Acid) 1 mg DAILY PO ; Start 08/12/18 at 09:00 Home Med (Med Rec Complete!) ASDIRECTED XX ; Start 08/08/18 at 19:45; Stop 08/08/18 at 19:48; Status DC Hydroxyzine HCl (Atarax) 25 mg Q6HP PRN PO ANXIETY; Start 08/16/18 at 10:00 Lorazepam (Ativan) 2 mg ASDIRECTED PRN PO SEE PROTOCOL; Start 08/11/18 at 20:15; Stop 08/17/18 at 09:30; Status DC Magnesium Hydroxide (Milk Of Magnesia) 30 ml DAILYPRN PRN PO CONSTIPATION; Sta rt 08/08/18 at 19:15 Multivitamins (Theragram-M) 1 tab DAILY PO ; Start 08/12/18 at 09:00 Non-Formulary Medication ( See Comment Field Below ) SEE COMMENTS SECTION 1T@10 XX ; Start 08/19/18 at 10:00; Stop 08/20/18 at 09:59; Status UNV Non-Formulary Medication ( See Comment Field Below ) SEE LABEL COMMENTS DAILY XX ; Start 08/17/18 at 09:00; Stop 08/25/18 at 09:14; Status DC Olanzapine (Zyprexa Intramuscular) 5 mg BID PRN IM IF PT REFUSES INVEGA; Start 08/24/18 at 21:00 Ondansetron HCl (Zofran) 4 mg Q4HP PRN PO NAUSEA OR VOMITING; Start 08/21/18 at 12:45 Paliperidone (Invega) 3 mg QAM PO Last administered on 08/28/18at 08:31; Start 08/17/18 at 09:00; Stop 08/28/18 at 12:35; Status DC Paliperidone (Invega) 3 mg QHS PO Last administered on 08/27/18at 21:34; Start 08/16/18 at 21:00; Stop 08/28/18 at 12:35; Status DC Paliperidone (Invega) 6 mg QHS PO Last administered on 08/28/18at 21:19; Start 08/28/18 at 21:00 Thiamine HCl (Thiamine HCl) 100 mg BID PO ; Start 08/11/18 at 21:00; Stop 08/14/18 at 09:01; Status DC Trazodone HCl (Desyrel) 50 mg QHSP PRN PO INSOMNIA; Start 08/08/18 at 19:15 Allergies Coded Allergies: No Known Allergies (Unverified , 01/20/17) KONSTANTIN KHAN DO Aug 29, 2018 12:14 pm
[2018-08-29] MEDS ORDERED: PALIPERIDONE PALMITATE 234 MG/1.5 ML INJ (INVEGA SUSTENNA)(J2426) IM ONE (14:00)
[2018-08-29] MEDS: ACETAMINOPHEN TAB 650MG DOSE (2X325MG) PO PRN (16:29)
[2018-08-29 18:33] VITALS: BP 136/76
[2018-08-29] MEDS: PALIPERIDONE 6 MG ER TAB (INVEGA) PO SCH (20:26)
[2018-08-30 06:40] VITALS: BP 101/62
[2018-08-30] MEDS: FOLIC ACID 1 MG TAB PO SCH (09:02)
[2018-08-30] MEDS: MULTIVITAMINS/MINERALS THERAP 1 TAB PO SCH (09:03)
--- NOTE | 2018-08-30 11:09 | MHIPNPDOC ---
[facility] Progress Note Progress Note DATE OF SERVICE: 08/30/18 HISTORY: Patient is a 33 -year-old , dependant, female, who was admitted after pt was brought in by police at per pt's called them stating the pt called him and told him she was going to kill herself. When MP's arrived to pt's home they found her in the garage with the car running, CO everywhere, broken glass on the floor everywhere, ceiling fan and detectors pulled out of [place] and destroyed on the floor. In the ED pt denied SI stating the car was running b/c she was going somewhere and couldn't f ind her purse. She denied calling her . 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 She was evasive and laughing during evaluation in the ED. Pt seen in room and refusing to talk to anyone. Per staff pt standing in her closet and won't come out. When I saw her she was being seen by nurse and no longer in her closet but did attempt to return to her closest after it was clear she was not going to talk to anyone. She appears more behavioral and annoyed she's here rather than psychotic. Pt advised she will be locked out of her room if she doesn't refrain from standing in the closet. Pt sat on her bed. Pt is very uncooperative. History gathered from ED records as pt refusing to talk to anyone. VITAL SIGNS: See below. NEW TEST RESULTS: See below. CURRENT MEDICATIONS: See below. MENTAL STATUS EXAMINATION: General Appearance: well groomed, appears stated age, own clothing Build: average Demeanor: less guarded, more cooperative with interview Eye Contact: fair Activity: average Behavior: cooperative and more willing to discuss symptoms Speech: spontaneous, reg rate/rhythm/volume Mood: improved range, anxious at times Mood "ok" Affect: less constricted, anxious at times Thought Process: linear, logical, anxious thoughts about being judged by others Thought Content (Delusions): improving paranoid delusions and suspiciousness Thought Content (Other): denies si/hi Thought Content (Aggressive): none reported Perception (Hallucinations): denies and doesn't appear to be responding internal stimuli Perception (Other): other (unable to assess) Cognition (Impairment of): none reported Cognition(Intelligence Est.): average Oriented: Awake, Alert, oriented x3 Insight: improving Judgment: improving Psychosis: improving delusional, paranoid, responding internal stimuli DIAGNOSES: Psychosis unspecified R/o paranoid Schizophrenia vs schizoaffective d/o r/o OCD Hx of bipolar 1 d/o with berna and psychosis Hx alcohol/opiate use d/o ASSESSMENT:TOO granted on Monday in Court and pt now compliant with invega. Took invega sustenna 234mg im yesterday and states she's tolerating it well and denies side effects. States did not attend groups yesterday due to anxiety about being judged if she had to talk. Explained that most of the other pts are probably thinking the same thing regarding themselves and aren't really think about her which helped. Per 08/29/18 note "Discussed therapy options (exposure) to aid anxiety, OCD, social anxiety. Asked pt about history from [place] of Berna with psychosis and states she's always been an "awkward" person, maybe bizarre to others and has periods of moods that are up or down. Discussed difference between bipolar d/o with psychosis and schizoaffective d/o with patient with treatment being the same (invega approved for) and seems to lean more toward schizoaffective d/o as again stated "I've always been awkward to others."" Pt much more open to discuss symptoms and appears more open to treatment as feels invega is helpful. She is tolerating it well. Insight is improving it appears. Is attending groups finally and states helpful. Is eating better. Appears less paranoid, suspicious, mistrustful, and deceptive. Her insight and judgement remain poor although showing some improvement the more she opens up with myself and staff. States she would like atarax 25mg q6hr prn anxiety to help her. MANAGEMENT PLAN:invega sustenna 234mg im today then 156mg Monday. Provide vistaril 25mg q6hr prn anxiety. Medications: invega 6mg qhs vistaril 25mg q6hr prn anxiety TIME SPENT: 30 minutes. Vital Signs Vital Signs Date Time Temp Pulse Resp B/P (MAP) Pulse Ox O2 Delivery O2 Flow Rate FiO2 08/30/18 08:47 Room Air 08/30/18 06:40 97.2 74 12 101/62 (75) 08/27/18 06:00 100 Current Medications Current Medications Acetaminophen (Tylenol Tab) 650 mg Q6HP PRN PO HEADACHE or DISCOMFORT Last administered on 08/29/18at 16:29; Start 08/08/18 at 19:15 Al Hydrox/Mg Hydrox/Simethicone (Mylanta) 30 ml Q4HP PRN PO HEARTBURN/INDIGESTION; Start 08/08/18 at 19:15 Aripiprazole (AbiLIFY) 5 mg BID PO ; Start 08/14/18 at 09:00; Stop 08/16/18 at 09:53; Status DC Diphenhydramine HCl (Benadryl) 25 mg Q4HP PRN IM ALLERGY; Start 08/24/18 at 16:00 Diphenhydramine HCl (Benadryl) 25 mg Q6HP PRN PO ALLERGY; Start 08/24/18 at 16:00 Fluoxetine HCl (PROzac) 10 mg DAILY PO ; Start 08/11/18 at 09:00; Stop 08/14/18 at 10:34; Status DC Folic Acid (Folic Acid) 1 mg DAILY PO Last administered on 08/30/18at 09:02; Start 08/12/18 at 09:00 Home Med (Med Rec Complete!) ASDIRECTED XX ; Start 08/08/18 at 19:45; Stop 08/08/18 at 19:48; Status DC Hydroxyzine HCl (Atarax) 25 mg Q6HP PRN PO ANXIETY; Start 08/16/18 at 10:00 Lorazepam (Ativan) 2 mg ASDIRECTED PRN PO SEE PROTOCOL; Start 08/11/18 at 20:15; Stop 08/17/18 at 09:30; Status DC Magnesium Hydroxide (Milk Of Magnesia) 30 ml DAILYPRN PRN PO CONSTIPATION; Start 08/08/18 at 19:15 Multivitamins (Theragram-M) 1 tab DAILY PO Last administered on 08/30/18at 09:03; Start 08/12/18 at 09:00 Non-Formulary Medication ( See Comment Field Below ) SEE COMMENTS SECTION 1T@10 XX ; Start 08/19/18 at 10:00; Stop 08/20/18 at 09:59; Status UNV Non-Formulary Medication ( See Comment Field Below ) SEE LABEL COMMENTS DAILY XX ; Start 08/17/18 at 09:00; Stop 08/25/18 at 09:14; Status DC Olanzapine (Zyprexa Intramuscular) 5 mg BID PRN IM IF PT REFUSES INVEGA; Start 08/24/18 at 21:00 Ondansetron HCl (Zofran) 4 mg Q4HP PRN PO NAUSEA OR VOMITING; Start 08/21/18 at 12:45 Paliperidone (Invega) 3 mg QAM PO Last administered on 08/28/18at 08:31; Start 08/17/18 at 09:00; Stop 08/28/18 at 12:35; Status DC Paliperidone (Invega) 3 mg QHS PO Last administered on 08/27/18at 21:34; Start 08/16/18 at 21:00; Stop 08/28/18 at 12:35; Status DC Paliperidone (Invega) 6 mg QHS PO Last administered on 08/29/18at 20:26; Start 08/28/18 at 21:00 Thiamine HCl (Thiamine HCl) 100 mg BID PO ; Start 08/11/18 at 21:00; Stop 08/14/18 at 09:01; Status DC Trazodone HCl (Desyrel) 50 mg QHSP PRN PO INSOMNIA; Start 08/08/18 at 19:15 Allergies Coded Allergies: No Known Allergies (Unverified , 01/20/17) KONSTANTIN KHAN DO Aug 30, 2018 11:09 am
[2018-08-30 18:00] VITALS: BP 110/64
[2018-08-30] MEDS: PALIPERIDONE 6 MG ER TAB (INVEGA) PO SCH (20:35)
[2018-08-31 06:00] VITALS: BP 98/63
[2018-08-31] MEDS: MULTIVITAMINS/MINERALS THERAP 1 TAB PO SCH (09:21)
[2018-08-31] MEDS: FOLIC ACID 1 MG TAB PO SCH (09:21)
[2018-08-31] MEDS: ACETAMINOPHEN TAB 650MG DOSE (2X325MG) PO PRN ×2 (09:21→20:34)
--- NOTE | 2018-08-31 11:02 | MHIPNPDOC ---
[facility] Progress Note Progress Note DATE OF SERVICE: 08/31/18 HISTORY: Patient is a 33 -year-old , dependant, female, who was admitted after pt was brought in by police at per pt's called them stating the pt called him and told him she was going to kill herself. When MP's arrived to pt's home they found her in the garage with the car running, CO everywhere, broken glass on the floor everywhere, ceiling fan and detectors pulled out of [place] and destroyed on the floor. In the ED pt denied SI stating the car was running b/c she was going somewhere and couldn't f ind her purse. She denied calling her . 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 She was evasive and laughing during evaluation in the ED. Pt seen in room and refusing to talk to anyone. Per staff pt standing in her closet and won't come out. When I saw her she was being seen by nurse and no longer in her closet but did attempt to return to her closest after it was clear she was not going to talk to anyone. She appears more behavioral and annoyed she's here rather than psychotic. Pt advised she will be locked out of her room if she doesn't refrain from standing in the closet. Pt sat on her bed. Pt is very uncooperative. History gathered from ED records as pt refusing to talk to anyone. VITAL SIGNS: See below. NEW TEST RESULTS: See below. CURRENT MEDICATIONS: See below. MENTAL STATUS EXAMINATION: General Appearance: well groomed, appears stated age, own clothing Build: average Demeanor: less guarded, more cooperative with interview Eye Contact: fair Activity: average Behavior: cooperative and more willing to discuss symptoms Speech: spontaneous, reg rate/rhythm/volume Mood: improved range, anxious at times Mood "ok" Affect: less constricted, anxious at times Thought Process: linear, logical, anxious thoughts about being judged by others Thought Content (Delusions): improving paranoid delusions and suspiciousness Thought Content (Other): denies si/hi Thought Content (Aggressive): none reported Perception (Hallucinations): denies and doesn't appear to be responding internal stimuli Perception (Other): other (unable to assess) Cognition (Impairment of): none reported Cognition(Intelligence Est.): average Oriented: Awake, Alert, oriented x3 Insight: improving Judgment: improving Psychosis: improving delusional, paranoid, responding internal stimuli DIAGNOSES: Psychosis unspecified R/o paranoid Schizophrenia vs schizoaffective d/o r/o OCD Hx of bipolar 1 d/o with ori and psychosis Hx alcohol/opiate use d/o ASSESSMENT:TOO granted on Monday in [address] and pt now compliant with invega. Took invega sustenna 234mg im yesterday and states she's tolerating it well and denies side effects. Pt seen in room today still in bed due to sinus problems. Offered her benadryl prn but declined. States she's ok just tired. Did not attend groups other than activity group yesterday due to anxiety again. Encouraged to go today and over weekend. Pt much more open to discuss symptoms and appears more open to treatment as feels invega is helpful. She is tolerat ing it well. Insight is improving it appears. Is eating better. Appears less paranoid, suspicious, mistrustful, and deceptive. Her insight and judgement remain limited although showing some improvement the more she opens up with myself and staff. MANAGEMENT PLAN:invega sustenna 234mg im today then 156mg Monday. Medications: invega 6mg qhs vistaril 25mg q6hr prn anxiety TIME SPENT: 30 minutes. Vital Signs Vital Signs Date Time Temp Pulse Resp B/P (MAP) Pulse Ox O2 Delivery O2 Flow Rate FiO2 08/31/18 06:00 98.6 72 14 98/63 (75) 08/30/18 08:47 Room Air 08/27/18 06:00 100 Current Medications Current Medications Acetaminophen (Tylenol Tab) 650 mg Q6HP PRN PO HEADACHE or DISCOMFORT Last administered on 08/31/18at 09:21; Start 08/08/18 at 19:15 Al Hydrox/Mg Hydrox/Simethicone (Mylanta) 30 ml Q4HP PRN PO HEARTBURN/INDIGESTION; Start 08/08/18 at 19:15 Aripiprazole (AbiLIFY) 5 mg BID PO ; Start 08/14/18 at 09:00; Stop 08/16/18 at 09:53; Status DC Diphenhydramine HCl (Benadryl) 25 mg Q4HP PRN IM ALLERGY; Start 08/24/18 at 16:00 Diphenhydramine HCl (Benadryl) 25 mg Q6HP PRN PO ALLERGY; Start 08/24/18 at 16:00 Fluoxetine HCl (PROzac) 10 mg DAILY PO ; Start 08/11/18 at 09:00; Stop 08/14/18 at 10:34; Status DC Folic Acid (Folic Acid) 1 mg DAILY PO Last administered on 08/31/18at 09:21; Start 08/12/18 at 09:00 Home Med (Med Rec Complete!) ASDIRECTED XX ; Start 08/08/18 at 19:45; Stop 08/08/18 at 19:48; Status DC Hydroxyzine HCl (Atarax) 25 mg Q6HP PRN PO ANXIETY; Start 08/16/18 at 10:00 Lorazepam (Ativan) 2 mg ASDIRECTED PRN PO SEE PROTOCOL; Start 08/11/18 at 20:15; Stop 08/17/18 at 09:30; Status DC Magnesium Hydroxide (Milk Of Magnesia) 30 ml DAILYPRN PRN PO CONSTIPATION; Start 08/08/18 at 19:15 Multivitamins (Theragram-M) 1 tab DAILY PO Last administered on 08/31/18at 09:21; Start 08/12/18 at 09:00 Non-Formulary Medication ( See Comment Field Below ) SEE COMMENTS SECTION 1T@10 XX ; Start 08/19/18 at 10:00; Stop 08/20/18 at 09:59; Status UNV Non-Formulary Medication ( See Comment Field Below ) SEE LABEL COMMENTS YUMI Y XX ; Start 08/17/18 at 09:00; Stop 08/25/18 at 09:14; Status DC Olanzapine (Zyprexa Intramuscular) 5 mg BID PRN IM IF PT REFUSES INVEGA; Start 08/24/18 at 21:00 Ondansetron HCl (Zofran) 4 mg Q4HP PRN PO NAUSEA OR VOMITING; Start 08/21/18 at 12:45 Paliperidone (Invega) 3 mg QAM PO Last administered on 08/28/18at 08:31; Start 08/17/18 at 09:00; Stop 08/28/18 at 12:35; Status DC Paliperidone (Invega) 3 mg QHS PO Last administered on 08/27/18at 21:34; Start 08/16/18 at 21:00; Stop 08/28/18 at 12:35; Status DC Paliperidone (Invega) 6 mg QHS PO Last administered on 08/30/18at 20:35; Start 08/28/18 at 21:00 Thiamine HCl (Thiamine HCl) 100 mg BID PO ; Start 08/11/18 at 21:00; Stop 08/14/18 at 09:01; Status DC Trazodone HCl (Desyrel) 50 mg QHSP PRN PO INSOMNIA; Start 08/08/18 at 19:15 Allergies Coded Allergies: No Known Allergies (Unverified , 01/20/17) KONSTANTIN KHAN DO Aug 31, 2018 11:02 am
[2018-08-31] MEDS ORDERED: DOCUSATE SODIUM 100 MG CAP PO PRN (13:15)
[2018-08-31 18:13] VITALS: BP 106/66
[2018-08-31] MEDS: PALIPERIDONE 6 MG ER TAB (INVEGA) PO SCH (20:30)
[2018-09-01 06:14] VITALS: BP 102/53
[2018-09-01] MEDS: FOLIC ACID 1 MG TAB PO SCH (08:41)
[2018-09-01] MEDS: ACETAMINOPHEN TAB 650MG DOSE (2X325MG) PO PRN (08:41)
[2018-09-01] MEDS: MULTIVITAMINS/MINERALS THERAP 1 TAB PO SCH (08:41)
[2018-09-01 18:43] VITALS: BP 122/71
[2018-09-01] MEDS: PALIPERIDONE 6 MG ER TAB (INVEGA) PO SCH (20:29)
[2018-09-02 06:09] VITALS: BP 97/59
[2018-09-02] MEDS: FOLIC ACID 1 MG TAB PO SCH (08:49)
[2018-09-02] MEDS: MULTIVITAMINS/MINERALS THERAP 1 TAB PO SCH (08:49)
[2018-09-02 18:00] VITALS: BP 100/67
[2018-09-02] MEDS: PALIPERIDONE 6 MG ER TAB (INVEGA) PO SCH (20:32)
[2018-09-03 06:20] VITALS: BP 106/58
[2018-09-03] MEDS: MULTIVITAMINS/MINERALS THERAP 1 TAB PO SCH (08:16)
[2018-09-03] MEDS: FOLIC ACID 1 MG TAB PO SCH (08:16)
--- NOTE | 2018-09-03 09:52 | MHIPNPDOC ---
[facility] Progress Note Progress Note DATE OF SERVICE: 09/03/18 HISTORY: Patient is a 33 -year-old , dependant, female, who was admitted after pt was brought in by police at per pt's c alled them stating the pt called him and told him she was going to kill herself. When MP's arrived to pt's home they found her in the garage with the car running, CO everywhere, broken glass on the floor everywhere, ceiling fan and detectors pulled out of [place] and destroyed on the floor. In the ED pt denied SI stating the car was running b/c she was going somewhere and couldn't find her purse. She denied calling her . 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 She was evasive and laughing during evaluation in the ED. Pt seen in room and refusing to talk to anyone. Per staff pt standing in her closet and won't come out. When I saw her she was being seen by nurse and no longer in her closet but did attempt to return to her closest after it was clear she was not going to talk to anyone. She appears more behavioral and annoyed she's here rather than psychotic. Pt advised she will be locked out of her room if she doesn't refrain from standing in the closet. Pt sat on her bed. Pt is very uncooperative. History gathered from ED records as pt refusing to talk to anyone. VITAL SIGNS: See below. NEW TEST RESULTS: See below. CURRENT MEDICATIONS: See below. MENTAL STATUS EXAMINATION: General Appearance: well groomed, appears stated age, own clothing Build: average Demeanor: less guarded, more cooperative with interview Eye Contact: fair Activity: average Behavior: cooperative and more willing to discuss symptoms Speech: spontaneous, reg rate/rhythm/volume Mood: improved range, anxious at times Mood "ok" Affect: less constricted, anxious at times Thought Process: linear, logical, anxious thoughts about being judged by others Thought Content (Delusions): improving paranoid delusions and suspiciousness Thought Content (Other): denies si/hi Thought Content (Aggressive): none reported Perception (Hallucinations): denies and doesn't appear to be responding internal stimuli Perception (Other): other (unable to assess) Cognition (Impairment of): none reported Cognition(Intelligence Est.): average Oriented: Awake, Alert, oriented x3 Insight: improving Judgment: improving Psychosis: improving delusional, paranoid, responding internal stimuli DIAGNOSES: Psychosis unspecified R/o paranoid Schizophrenia vs schizoaffective d/o r/o OCD Hx of bipolar 1 d/o with ori and psychosis Hx alcohol/opiate use d/o ASSESSMENT:TOO granted on Monday in Court and pt now compliant with invega. States she's ok and that her symptoms are improved. Did attend some groups over the weekend. States anxiety is improving. She is tolerating invega well and ready for invega sustenna 156mg im today. Insight is improving it appears. Is eating better. Appears less paranoid, suspicious, mistrustful, and deceptive. Her insight and judgement remain limited although showing improvement the more she opens up with myself and staff. Denies SI/HI. Hopeful to go home soon MANAGEMENT PLAN:invega sustenna 156mg im today Medications: invega 6mg qhs vistaril 25mg q6hr prn anxiety invega sustenna 234mg im last TIME SPENT: 30 minutes. Vital Signs Vital Signs Date Time Temp Pulse Resp B/P (MAP) Pulse Ox O2 Delivery O2 Flow Rate FiO2 09/03/18 06:20 99.4 94 16 106/58 (74) 08/30/18 08:47 Room Air Current Medications Current Medications Acetaminophen (Tylenol Tab) 650 mg Q6HP PRN PO HEADACHE or DISCOMFORT Last administered on 09/01/18at 08:41; Start 08/08/18 at 19:15 Al Hydrox/Mg Hydrox/Simethicone (Mylanta) 30 ml Q4HP PRN PO HEARTBURN/INDIGESTION; Start 08/08/18 at 19:15 Aripiprazole (AbiLIFY) 5 mg BID PO ; Start 08/14/18 at 09:00; Stop 08/16/18 at 09:53; Status DC Diphenhydramine HCl (Benadryl) 25 mg Q4HP PRN IM ALLERGY; Start 08/24/18 at 16:00 Diphenhydramine HCl (Benadryl) 25 mg Q6HP PRN PO ALLERGY; Start 08/24/18 at 16:00 Docusate Sodium (Colace) 100 mg BIDP PRN PO CONSTIPATION Last administered on 09/02/18at 08:50; Start 08/31/18 at 13:15 Fluoxetine HCl (PROzac) 10 mg DAILY PO ; Start 08/11/18 at 09:00; Stop 08/14/18 at 10:34; Status DC Folic Acid (Folic Acid) 1 mg DAILY PO Last administered on 09/03/18at 08:16; Start 08/12/18 at 09:00 Home Med (Med Rec Complete!) ASDIRECTED XX ; Start 08/08/18 at 19:45; Stop 08/08/18 at 19:48; Status DC Hydroxyzine HCl (Atarax) 25 mg Q6HP PRN PO ANXIETY; Start 08/16/18 at 10:00 Lorazepam (Ativan) 2 mg ASDIRECTED PRN PO SEE PROTOCOL; Start 08/11/18 at 20:15; Stop 08/17/18 at 09:30; Status DC Magnesium Hydroxide (Milk Of Magnesia) 30 ml DAILYPRN PRN PO CONSTIPATION; Start 08/08/18 at 19:15 Multivitamins (Theragram-M) 1 tab DAILY PO Last administered on 09/03/18at 08:16; Start 08/12/18 at 09:00 Non-Formulary Medication ( See Comment Field Below ) SEE COMMENTS SECTION 1T@10 XX ; Start 08/19/18 at 10:00; Stop 08/20/18 at 09:59; Status UNV Non-Formulary Medication ( See Comment Field Below ) SEE LABEL COMMENTS DAILY XX ; Start 08/17/18 at 09:00; Stop 08/25/18 at 09:14; Status DC Olanzapine (Zyprexa Intramuscular) 5 mg BID PRN IM IF PT REFUSES INVEGA; Start 08/24/18 at 21:00 Ondansetron HCl (Zofran) 4 mg Q4HP PRN PO NAUSEA OR VOMITING; Start 08/21/18 at 12:45 Paliperidone (Invega) 3 mg QAM PO Last administered on 08/28/18at 08:31; Start 08/17/18 at 09:00; Stop 08/28/18 at 12:35; Status DC Paliperidone (Invega) 3 mg QHS PO Last administered on 08/27/18at 21:34; Start 08/16/18 at 21:00; Stop 08/28/18 at 12:35; Status DC Paliperidone (Invega) 6 mg QHS PO Last administered on 09/02/18at 20:32; Start 08/28/18 at 21:00 Thiamine HCl (Thiamine HCl) 100 mg BID PO ; Start 08/11/18 at 21:00; Stop 08/14/18 at 09:01; Status DC Trazodone HCl (Desyrel) 50 mg QHSP PRN PO INSOMNIA; Start 08/08/18 at 19:15 Allergies Coded Allergies: No Known Allergies (Unverified , 01/20/17) KONSTANTIN KHAN DO Sep 03, 2018 9:52 am
[2018-09-03] MEDS ORDERED: PALIPERIDONE PALMITATE 156 MG/1ML INJ(INVEGA SUSTENNA)(J2426) IM ONE (11:00)
[2018-09-03] MEDS: ACETAMINOPHEN TAB 650MG DOSE (2X325MG) PO PRN (11:13)
[2018-09-03 18:00] VITALS: BP 110/67
[2018-09-03] MEDS: PALIPERIDONE 6 MG ER TAB (INVEGA) PO SCH (20:34)
[2018-09-04 06:16] VITALS: BP 108/60
[2018-09-04] MEDS: FOLIC ACID 1 MG TAB PO SCH (09:11)
[2018-09-04] MEDS: MULTIVITAMINS/MINERALS THERAP 1 TAB PO SCH (09:11)
--- NOTE | 2018-09-04 10:05 | MHIPNPDOC ---
[facility] Progress Note Progress Note DATE OF SERVICE: 09/04/18 HISTORY: Patient is a 33 -year-old , dependant, female, who was admitted after pt was brought in by police at per pt's c alled them stating the pt called him and told him she was going to kill herself. When MP's arrived to pt's home they found her in the garage with the car running, CO everywhere, broken glass on the floor everywhere, ceiling fan and detectors pulled out of [place] and destroyed on the floor. In the ED pt denied SI stating the car was running b/c she was going somewhere and couldn't find her purse. She denied calling her . 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 She was evasive and laughing during evaluation in the ED. Pt seen in room and refusing to talk to anyone. Per staff pt standing in her closet and won't come out. When I saw her she was being seen by nurse and no longer in her closet but did attempt to return to her closest after it was clear she was not going to talk to anyone. She appears more behavioral and annoyed she's here rather than psychotic. Pt advised she will be locked out of her room if she doesn't refrain from standing in the closet. Pt sat on her bed. Pt is very uncooperative. History gathered from ED records as pt refusing to talk to anyone. VITAL SIGNS: See below. NEW TEST RESULTS: See below. CURRENT MEDICATIONS: See below. MENTAL STATUS EXAMINATION: General Appearance: well groomed, appears stated age, own clothing Build: average Demeanor: cooperative, Eye Contact: good Activity: average Behavior: cooperative and more willing to discuss symptoms Speech: spontaneous, reg rate/rhythm/volume Mood: improved range and anxiety, more euthymic Mood "ok" Affect: less constricted, anxious at times Thought Process: linear, logical, less anxious thoughts about being judged by others Thought Content (Delusions): improving paranoid delusions and suspiciousness Thought Content (Other): denies si/hi Thought Content (Aggressive): none reported Perception (Hallucinations): denies and doesn't appear to be responding internal stimuli Perception (Other): other (unable to assess) Cognition (Impairment of): none reported Cognition(Intelligence Est.): average Oriented: Awake, Alert, oriented x3 Insight: improving Judgment: improving Psychosis: improving delusional, paranoid, responding internal stimuli DIAGNOSES: Psychosis unspecified R/o paranoid Schizophrenia vs schizoaffective d/o r/o OCD Hx of bipolar 1 d/o with ori and psychosis Hx alcohol/opiate use d/o ASSESSMENT:TOO granted in Court and pt now compliant with invega tolerating well and feels it's beneficial as her thoughts are slower. Admits she misses her fast thoughts are time but feels her thoughts are more clear now that they're slower. Tolerated invega 156mg im yesterday well, no side effects. States she's ok and that her symptoms are improved. Did attend some groups over the weekend. States overall anxiety is improving. Endorses less OCD urges. Endorses feeling her body is restlessless but believes that's just b/c she is bored here and more active at home physically. Insight is improving it appears. Is eating better. Appears less paranoid, suspicious, mistrustful, and deceptive. Her insight and judgement remain limited although showing improvement the more she opens up with myself and staff. Denies SI/HI. Hopeful to go home soon MANAGEMENT PLAN:d/c oral invega Medications: vistaril 25mg q6hr prn anxiety invega sustenna 234mg im qmonthly TIME SPENT: 30 minutes. Vital Signs Vital Signs Date Time Temp Pulse Resp B/P (MAP) Pulse Ox O2 Delivery O2 Flow Rate FiO2 09/04/18 06:16 99.0 90 14 108/60 (76) 08/30/18 08:47 Room Air Current Medications Current Medications Acetaminophen (Tylenol Tab) 650 mg Q6HP PRN PO HEADACHE or DISCOMFORT Last administered on 09/03/18at 11:13; Start 08/08/18 at 19:15 Al Hydrox/Mg Hydrox/Simethicone (Mylanta) 30 ml Q4HP PRN PO HEARTBURN/INDIGESTION; Start 08/08/18 at 19:15 Aripiprazole (AbiLIFY) 5 mg BID PO ; Start 08/14/18 at 09:00; Stop 08/16/18 at 09:53; Status DC Diphenhydramine HCl (Benadryl) 25 mg Q4HP PRN IM ALLERGY; Start 08/24/18 at 16:00 Diphenhydramine HCl (Benadryl) 25 mg Q6HP PRN PO ALLERGY; Start 08/24/18 at 16:00 Docusate Sodium (Colace) 100 mg BIDP PRN PO CONSTIPATION Last administered on 09/02/18at 08:50; Start 08/31/18 at 13:15 Fluoxetine HCl (PROzac) 10 mg DAILY PO ; Start 08/11/18 at 09:00; Stop 08/14/18 at 10:34; Status DC Folic Acid (Folic Acid) 1 mg DAILY PO Last administered on 09/04/18at 09:11; Start 08/12/18 at 09:00 Home Med (Med Rec Complete!) ASDIRECTED XX ; Start 08/08/18 at 19:45; Stop 08/08/18 at 19:48; Status DC Hydroxyzine HCl (Atarax) 25 mg Q6HP PRN PO ANXIETY; Start 08/16/18 at 10:00 Lorazepam (Ativan) 2 mg ASDIRECTED PRN PO SEE PROTOCOL; Start 08/11/18 at 20:15; Stop 08/17/18 at 09:30; Status DC Magnesium Hydroxide (Milk Of Magnesia) 30 ml DAILYPRN PRN PO CONSTIPATION; Start 08/08/18 at 19:15 Multivitamins (Theragram-M) 1 tab DAILY PO Last administered on 09/04/18at 09:11; Start 08/12/18 at 09:00 Non-Formulary Medication ( See Comment Field Below ) SEE COMMENTS SECTION 1T@10 XX ; Start 08/19/18 at 10:00; Stop 08/20/18 at 09:59; Status UNV Non-Formulary Medication ( See Comment Field Below ) SEE LABEL COMMENTS DAILY XX ; Start 08/17/18 at 09:00; Stop 08/25/18 at 09:14; Status DC Olanzapine (Zyprexa Intramuscular) 5 mg BID PRN IM IF PT REFUSES INVEGA; Start 08/24/18 at 21:00 Ondansetron HCl (Zofran) 4 mg Q4HP PRN PO NAUSEA OR VOMITING; Start 08/21/18 at 12:45 Paliperidone (Invega) 3 mg QAM PO Last administered on 08/28/18at 08:31; Start 08/17/18 at 09:00; Stop 08/28/18 at 12:35; Status DC Paliperidone (Invega) 3 mg QHS PO Last administered on 08/27/18at 21:34; Start 08/16/18 at 21:00; Stop 08/28/18 at 12:35; Status DC Paliperidone (Invega) 6 mg QHS PO Last administered on 09/03/18at 20:34; Start 08/28/18 at 21:00 Thiamine HCl (Thiamine HCl) 100 mg BID PO ; Start 08/11/18 at 21:00; Stop 08/14/18 at 09:01; Status DC Trazodone HCl (Desyrel) 50 mg QHSP PRN PO INSOMNIA; Start 08/08/18 at 19:15 Allergies Coded Allergies: No Known Allergies (Unverified , 01/20/17) KONSTANTIN KHAN DO Sep 04, 2018 10:05 am
[2018-09-04 18:00] VITALS: BP 110/67
[2018-09-05 06:36] VITALS: BP 97/53
[2018-09-05] MEDS: MULTIVITAMINS/MINERALS THERAP 1 TAB PO SCH (08:25)
[2018-09-05] MEDS: FOLIC ACID 1 MG TAB PO SCH (08:25)
[2018-09-05] MEDS ORDERED: HYDR-3363 PO (09:25)
[2018-09-05] MEDS ORDERED: INVE234I IM (09:25)
--- NOTE | 2018-09-05 09:26 | MHDSPDOC ---
[facility] Discharge Summary Discharge Summary DATE OF ADMISSION: Aug 08, 2018 at 7:13 pm DATE OF DISCHARGE: Sep 05, 2018 DISCHARGE DIAGNOSES: Psychosis unspecified R/o paranoid Schizophrenia vs schizoaffective d/o r/o OCD Hx of bipolar 1 d/o with ori and psychosis Hx alcohol/opiate use d/o REASON FOR ADMISSION: Patient is a 33 -year-old , dependant, female, who was admitted after pt was brought in by police at per pt's called them stating the pt called him and told him she was going to kill herself. When MP's arrived to pt's home they found her in the garage with the car running, CO everywhere, broken glass on the floor everywhere, ceiling fan and detectors pulled out of [place] and destroyed on the floor. In the ED pt denied SI stating the car was running b/c she was going somewhere and couldn't find her purse. She denied calling her . 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 She was evasive and laughing during evaluation in the ED. Pt seen in room and refusing to talk to anyone. Per staff pt standing in her closet and won't come out. When I saw her she was being seen by nurse and no longer in her closet but did attempt to return to her closest after it was clear she was not going to talk to anyone. She appears more behavioral and annoyed she's here rather than psychotic. Pt advised she will be locked out of her room if she doesn't refrain from standing in the closet. Pt sat on her bed. Pt is very uncooperative. History gathered from ED records as pt refusing to talk to anyone. CONSULTANTS INVOLVED: none TREATMENT AND PROGRESS ON THE UNIT : Pt was admitted to [facility], seen for psychiatric assessment and refusing to participate with treatment, take medications, talk with staff acting very bizarre and paranoid. Due to pt noncompliance with treatment a TOO was filed and granted by the court and pt was then started on invega increased to 6mg bid for psychosis that she tolerated well and symptoms of psychosis and paranoia improved. She was administered invega sustenna 234mg and 4 days later invega sustenna 156mg im that she tolerated well with improvement in psychotic symptoms. Pt did start to go to some groups, mostly recreation group, as her symptoms of paranoia and anxiety/OCD/Social anxiety improved. She was provided vistaril 25mg q6hr prn anxiety and trazodone 50mg qhs prn insomnia. Pt found her medications beneficial and tolerated them well. Her symptoms improved with treatment. On day of discharge she denied depression, anxiety, insomnia, SI/HI, hallucinations, delusions. She was discharged home after family meeting with her with follow-up at [facility]. She felt safe for discharge. DISCHARGE ASSESSMENT: Pt seen and states she's doing very well and her mood is good, looking forward to going home with her who is very supportive today. States she's tolerating her invega sustenna and feels it's beneficial for her paranoia and anxiety. States her symptoms are improved. Did attend some groups mostly recreation which she liked and found helpful. States overall anxiety is improved. Endorses improved OCD urges. Is sleeping and eating well. Appears to have greatly improved paranoia, suspicious, mistrustful, and deceptive thoughts. Her insight and judgement are fair to good. Denies depression, anxiety, insomnia, SI/HI, hallucination, delusions, paranoia. Feels safe to be discharged home with today. MENTAL STATUS EXAMINATION ON DISCHARGE: General Appearance: well groomed, appears stated age, own clothing Build: average Demeanor: cooperative Eye Contact: good Activity: average Behavior: cooperative and more willing to discuss symptoms Speech: spontaneous, reg rate/rhythm/volume Mood: euthymic, full Mood "good" Affect: euthymic, full Thought Process: linear, logical, improved anxious thoughts about being judged by others Thought Content (Delusions): none reported Thought Content (Other): denies si/hi Thought Content (Aggressive): none reported Perception (Hallucinations): denies and doesn't appear to be responding interna l stimuli Perception (Other): other (unable to assess) Cognition (Impairment of): none reported Cognition(Intelligence Est.): average Oriented: Awake, Alert, oriented x3 Insight: fair to good Judgment: fair to good Psychosis: none reported MEDICATIONS ON DISCHARGE: vistaril 25mg q6hr prn anxiety invega sustenna 234mg im qmonthly PLAN/FOLLOWUP ARRANGEMENTS: D/c home with with follow-up at [facility]. The amount of time spent in the coordination of care for this patient was approximately 30 minutes. Vital Signs/I&Os Vital Signs Date Time Temp Pulse Resp B/P (MAP) Pulse Ox O2 Delivery O2 Flow Rate FiO2 09/05/18 06:41 16 09/05/18 06:36 98.5 101 97/53 (68) 08/30/18 08:47 Room Air Medications No Active Prescriptions or Reported Meds Allergies Coded Allergies: No Known Allergies (Unverified , 01/20/17) KONSTANTIN KHAN DO Sep 05, 2018 9:26 am
== END 2018-09-05 13:44 | disposition home or self-care (01) | DRG 885 ==
LOC: M ED 13:29 → M ED INP 19:13 → M PSY 21:34
PROVIDERS: ADMIT Psychiatry & Neurology Psychiatry; ATTEND Psychiatry & Neurology Psychiatry
DX: F29 Unspecified psychosis not due to a substance or known physiological condition (principal); F10.10 Alcohol abuse, uncomplicated; F11.10 Opioid abuse, uncomplicated; F20.0 Paranoid schizophrenia

== ENCOUNTER → 2018-10-03 | Outpatient (CLI) | payer OTHER ==
[~2018-10-03] MED LIST changes: +HYDR-3363 PO; +INVE234I IM
== END ==
LOC: M OUTALCOH 09:34
PROVIDERS: ATTEND Psychiatry & Neurology Psychiatry
DX: F10.10 Alcohol abuse, uncomplicated (principal)

== ENCOUNTER 2019-05-27 01:29 | Inpatient (IN) | payer OTHER ==
[~2019-05-27 01:29] MED LIST changes: -INDO50CA PO; +INDO50CA91 PO
[2019-05-27 01:57] LABS: HEMATOCRIT 41.1 % (36.0-47.0); HEMOGLOBIN 14.1 g/dl (12.0-15.5); MEAN CORPUSCULAR HEMOGLOBIN 29.5 pg (27.0-33.0); MEAN CORPUSCULAR HGB CONC 34.3 g/dl (32.0-36.5); PLATELET COUNT, AUTOMATED 228 10^3/uL (150-450); RED BLOOD COUNT 4.78 10^6/uL (4.00-5.40); WHITE BLOOD COUNT 5.2 10^3/uL (4.0-10.0)
[2019-05-27 02:18] LABS: AMPHETAMINES LEVEL URINE NEGATIVE (NEGATIVE); BARBITURATES URINE NEGATIVE (NEGATIVE); BENZODIAZEPINES URINE NEGATIVE (NEGATIVE); CANNABINOIDS URINE NEGATIVE (NEGATIVE); COCAINE METABOLITE URINE NEGATIVE (NEGATIVE); METHADONE URINE NEGATIVE (NEGATIVE); OPIATES URINE NEGATIVE (NEGATIVE); PHENCYCLIDINE URINE NEGATIVE (NEGATIVE)
[2019-05-27 02:50] LABS: ACETAMINOPHEN LEVEL < 2.0 UG/ML (10.0-30.0); ALBUMIN 4.2 GM/DL (3.2-5.2); ALT/SGPT 16 U/L (12-78); BILIRUBIN,DIRECT 0.2 MG/DL (0.0-0.2); BILIRUBIN,TOTAL 0.5 MG/DL (0.2-1.0); BLOOD UREA NITROGEN 6 MG/DL (7-18); CALCIUM LEVEL 9.1 MG/DL (8.5-10.1); CARBON DIOXIDE LEVEL 25 MEQ/L (21-32); CHLORIDE LEVEL 112 MEQ/L (98-107); CREATININE FOR GFR 0.85 MG/DL (0.55-1.30); GLOMERULAR FILTRATION RATE > 60.0 (>60); GLUCOSE, FASTING 135 MG/DL (70-100); POTASSIUM SERUM 3.4 MEQ/L (3.5-5.1); SALICYLATE LEVEL < 1.7 MG/DL (5.0-30.0); SODIUM LEVEL 146 MEQ/L (136-145); TOTAL PROTEIN 7.3 GM/DL (6.4-8.2)
[2019-05-27 02:59] LABS: HCG, SERUM QUALITATIVE NEGATIVE (NEGATIVE)
[2019-05-27] MEDS ORDERED: MAALOX 30 ML SUSP *UDC PO PRN (13:45)
[2019-05-27] MEDS ORDERED: ACETAMINOPHEN TAB 650MG DOSE (2X325MG) PO PRN (13:45)
[2019-05-27] MEDS ORDERED: traZODone 50 MG TAB PO PRN (13:45)
[2019-05-27] MEDS ORDERED: MOM 30ML SUSPENSION UDC PO PRN (13:45)
[2019-05-27 15:19] LABS: ALBUMIN 4.2 GM/DL (3.2-5.2); ALT/SGPT 15 U/L (12-78); BILIRUBIN,TOTAL 0.8 MG/DL (0.2-1.0); BLOOD UREA NITROGEN 6 MG/DL (7-18); CALCIUM LEVEL 9.3 MG/DL (8.5-10.1); CARBON DIOXIDE LEVEL 26 MEQ/L (21-32); CHLORIDE LEVEL 111 MEQ/L (98-107); CREATININE FOR GFR 0.73 MG/DL (0.55-1.30); GLOMERULAR FILTRATION RATE > 60.0 (>60); GLUCOSE, FASTING 88 MG/DL (70-100); POTASSIUM SERUM 4.3 MEQ/L (3.5-5.1); SODIUM LEVEL 145 MEQ/L (136-145); TOTAL PROTEIN 7.1 GM/DL (6.4-8.2)
[2019-05-27] MEDS ORDERED: LORazepam 2 MG TAB PO PRN (17:30)
[2019-05-27] MEDS: PALIPERIDONE 3 MG ER TAB (INVEGA) PO SCH (21:00)
[2019-05-27] MEDS: THIAMINE 100 MG TAB PO SCH (21:00)
[2019-05-28 06:42] VITALS: BP 127/88
[2019-05-28] MEDS: FOLIC ACID 1 MG TAB PO SCH (09:00)
[2019-05-28] MEDS: MULTIVITAMINS/MINERALS THERAP 1 TAB PO SCH (09:00)
[2019-05-28] MEDS: THIAMINE 100 MG TAB PO SCH ×2 (09:00→20:59)
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
[2019-05-28] MEDS: PALIPERIDONE 3 MG ER TAB (INVEGA) PO SCH (20:59)
[2019-05-29 06:37] VITALS: BP 116/76
[2019-05-29] MEDS: THIAMINE 100 MG TAB PO SCH ×2 (09:00→20:20)
[2019-05-29] MEDS: FOLIC ACID 1 MG TAB PO SCH (09:00)
[2019-05-29] MEDS: MULTIVITAMINS/MINERALS THERAP 1 TAB PO SCH (09:00)
[2019-05-29 10:11] VITALS: BP 116/76
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
[2019-05-29 18:15] VITALS: BP 129/76
[2019-05-29] MEDS: PALIPERIDONE 3 MG ER TAB (INVEGA) PO SCH (20:19)
[2019-05-30 06:15] VITALS: BP 146/86
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
[2019-05-30 08:31] VITALS: BP 136/88
[2019-05-30] MEDS: FOLIC ACID 1 MG TAB PO SCH (10:08)
[2019-05-30] MEDS: THIAMINE 100 MG TAB PO SCH (10:08)
[2019-05-30] MEDS: MULTIVITAMINS/MINERALS THERAP 1 TAB PO SCH (10:08)
[2019-05-30 18:00] VITALS: BP 124/70
[2019-05-30 20:08] VITALS: BP 135/93
[2019-05-30] MEDS: PALIPERIDONE 3 MG ER TAB (INVEGA) PO SCH (21:00)
[2019-05-31 06:07] VITALS: BP 139/80
[2019-05-31] MEDS: MULTIVITAMINS/MINERALS THERAP 1 TAB PO SCH (09:00)
[2019-05-31] MEDS: FOLIC ACID 1 MG TAB PO SCH (09:00)
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
[2019-05-31 16:08] VITALS: BP 99/62
[2019-05-31] MEDS: PALIPERIDONE 3 MG ER TAB (INVEGA) PO SCH (21:00)
[2019-06-01 06:22] VITALS: BP 138/73
[2019-06-01] MEDS: FOLIC ACID 1 MG TAB PO SCH (09:45)
[2019-06-01] MEDS: MULTIVITAMINS/MINERALS THERAP 1 TAB PO SCH (09:45)
[2019-06-01 15:36] VITALS: BP 127/81
[2019-06-01] MEDS: PALIPERIDONE 3 MG ER TAB (INVEGA) PO SCH (21:00)
[2019-06-02 06:36] VITALS: BP 113/70
[2019-06-02] MEDS: FOLIC ACID 1 MG TAB PO SCH (08:51)
[2019-06-02] MEDS: MULTIVITAMINS/MINERALS THERAP 1 TAB PO SCH (08:52)
[2019-06-02 15:42] VITALS: BP 127/80
[2019-06-02] MEDS: PALIPERIDONE 3 MG ER TAB (INVEGA) PO SCH (21:00)
[2019-06-03 06:50] VITALS: BP 124/61
[2019-06-03] MEDS: FOLIC ACID 1 MG TAB PO SCH (09:00)
[2019-06-03] MEDS: MULTIVITAMINS/MINERALS THERAP 1 TAB PO SCH (09:00)
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
[2019-06-03 16:14] VITALS: BP 113/69
[2019-06-03] MEDS: PALIPERIDONE 3 MG ER TAB (INVEGA) PO SCH (21:00)
[2019-06-04 06:35] VITALS: BP 109/57
[2019-06-04] MEDS: FOLIC ACID 1 MG TAB PO SCH (08:58)
[2019-06-04] MEDS: MULTIVITAMINS/MINERALS THERAP 1 TAB PO SCH (08:58)
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
[2019-06-04 16:30] VITALS: BP 98/57
[2019-06-04] MEDS: PALIPERIDONE 3 MG ER TAB (INVEGA) PO SCH (21:00)
[2019-06-05 06:35] VITALS: BP_SYST 100; BP_SYST 116; BP_DIAS 54; BP_DIAS 73
[2019-06-05] MEDS: FOLIC ACID 1 MG TAB PO SCH (08:47)
[2019-06-05] MEDS: MULTIVITAMINS/MINERALS THERAP 1 TAB PO SCH (08:47)
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
[2019-06-05 16:18] VITALS: BP 112/65
[2019-06-05] MEDS: PALIPERIDONE 3 MG ER TAB (INVEGA) PO SCH (22:10)
[2019-06-06 06:31] VITALS: BP 116/74
[2019-06-06] MEDS: MULTIVITAMINS/MINERALS THERAP 1 TAB PO SCH (09:00)
[2019-06-06] MEDS: FOLIC ACID 1 MG TAB PO SCH (09:00)
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
[2019-06-06 16:32] VITALS: BP 122/67
[2019-06-06] MEDS ORDERED: ARIPiprazole 2 MG TAB PO SCH (21:00)
[2019-06-07] MEDS: MULTIVITAMINS/MINERALS THERAP 1 TAB PO SCH (09:00)
[2019-06-07] MEDS: FOLIC ACID 1 MG TAB PO SCH (09:00)
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
[2019-06-07] MEDS ORDERED: ARIPiprazole 2 MG TAB PO ONE (21:00)
[2019-06-07] MEDS ORDERED: ARIPiprazole 2 MG TAB PO SCH (21:00)
[2019-06-08 06:10] VITALS: BP 116/67
[2019-06-08] MEDS: MULTIVITAMINS/MINERALS THERAP 1 TAB PO SCH (08:59)
[2019-06-08] MEDS: FOLIC ACID 1 MG TAB PO SCH (08:59)
[2019-06-09 06:15] VITALS: BP 113/55
[2019-06-09] MEDS: MULTIVITAMINS/MINERALS THERAP 1 TAB PO SCH (09:00)
[2019-06-09] MEDS: FOLIC ACID 1 MG TAB PO SCH (09:00)
[2019-06-09 16:00] VITALS: BP 116/72
[2019-06-10 06:23] VITALS: BP 132/83
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
[2019-06-11 06:35] VITALS: BP 149/71
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
[2019-06-11 16:28] VITALS: BP 120/76
[2019-06-12 06:51] VITALS: BP 133/80
[2019-06-12] MEDS ORDERED: ABIL1TAB11 PO (11:01)
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
== END 2019-06-12 11:30 | disposition home or self-care (01) | DRG 885 ==
LOC: M ED 01:29 → M ED INP 13:45 → M PSY 15:25
PROVIDERS: ADMIT Psychiatry & Neurology Addiction Medicine; ATTEND Psychiatry & Neurology Addiction Medicine
DX: F20.9 Schizophrenia, unspecified (principal); F10.20 Alcohol dependence, uncomplicated; Z91.5 Personal history of self-harm